=== PATIENT | male | born 1940 | race Caucasian/White ===

== ENCOUNTER → 2017-05-20 | Outpatient (CLI) | payer OTHER, BC ==
[~2017-05-20] VITALS: Ht 170.2 cm; Wt 77.5 kg
[~2017-05-20] MED LIST: APAP500; ATIVAN1 MG PO; AUGMENTIN 875-1 EACH PO; CALCIUM 600 WI1 EAC5 PO; CARDIZEM CD240 MG PO; CEFTIN500 MG PO; CELEXA 20 MG TA20 M1 PO; COQ-10100 MG PO; COUMADIN 2 MG TA2 M1 PO; COUMADIN 5 MG TA5 M1 PO; DILTIAZEM 24HR180 M2 PO; DILTIAZEM 24HR240 MG PO; DILTIAZEM ER240 M1 PO; ELIQUIS5 MG PO; EXCEDRIN ASA F1 EAC1 PO; FISH OIL 1,0001 EAC5 PO; FML 0.1% 10ML10 M1 OP; GABAPENTIN600 M1 PO; HYDROCHLOROTHIA25 M1 PO; HYDROCODON-ACE1 EAC5 PO; HYDROCODON-ACE1 EACH PO; HYDROCODONE-AP1 EA11 PO; IBUPROFEN 200200 M1 PO; KEFLEX500 MG PO; KEPPRA 500 MG500 M1 PO; LEVAQUIN 500 M500 M4 PO; LIDODERM 5%1 PATCH TOP; LIORESAL 10 MG10 MG PO; LIPITOR10 MG PO; LOPRESSOR25 PO; LORAZEPAM 1 MG T1 M1 PO; LOSARTAN POTASS50 MG PO; MIRALAX255 GM PO; MS CONTIN30 MG PO; NABUMETONE 500500 M1 PO; NAPROSYN500 MG PO; NEURONTIN 300300 M1 PO; NYSTATIN1 EAC9 TP; OMEPRAZOLE 20 M20 MG PO; OMEPRAZOLE20 M2 PO; OSELB75 PO; OXYCODONE HCL 55 MG PO; OXYCODONE HCL5 M1 PO; OXYCONTIN CR 2020 MG PO; OXYCONTIN20 MG PO; OXYCONTIN30 MG PO; PACERONE 200 M200 M1 PO; PERCOCET 5-3251 EACH PO; PERCOCET PO; PHENYTOIN; PHENYTOIN SODI100 M3 PO; ROXICODONE5 M1 PO; ROXICODONE5 MG PO; SENOKOT-S1 TA1 PO; TAMSULOSIN HCL0.4 MG PO; TUSSIONEX PENN473 ML PO; UNICOMPLEX M TA1 TA1 PO; VITAMIN D31000 UNI2 PO; ZOCOR40 MG PO; ZOFRAN4 MG PO
--- NOTE | ~2017-05-20 | HPC ---
[facility] [place] [address] PAIN MANAGEMENT CONSULTATION Name: DAPHNE RUDOLPH Room #: REG CL MBrandyn.#: [id number] Admission: 05/20/17 Attend Phys: Davin Julio DO Discharge: Date of : 42 Report #: [id number] THIS REPORT FOR: //name// CC: LISETH Julio DATE OF SERVICE: 05/21/2017 DATE OF SERVICE: 05/20/2017 CHIEF COMPLAINT: Neck pain, right shoulder pain. HISTORY OF PRESENT ILLNESS: As you know, the patient is a very pleasant 77-year-old male, who returns today in followup visit with chronic cervical radicular symptoms involving neck and right upper extremity. He returns today in followup visit stating that he continues on his anticoagulant. He has received information from his floor worker well service that he has not to come off the anticoagulant without clearance and I agree. He indicates that he would like to undergo next in the series of cervical epidural injections and is going to be obtaining clearance to do so, but unfortunately he did not discontinue his medication prior to today's visit. We can make the patient's appointment next week, so he can stop his Eliquis 3 days prior to our injection. We will then make an appointment back for the patient to undergo a cervical epidural injection. He is requesting possible medication changes today to address ongoing pain issues. He is placing pain score 8/10, states the pain is sharp and burning, exacerbated with activities, cold temperatures. Improves with medications. He denies injury or trauma to his neck or upper extremity that has led to progression of pain. ALLERGIES: TETRACYCLINE and SIMVASTATIN. CURRENT MEDICATIONS: Ibuprofen, Keppra, Lipitor, diltiazem, lorazepam, omeprazole, metoprolol, oxycodone. SOCIAL HISTORY: The patient denies tobacco, alcohol, IV or illicit drug use. He is retired. He is unaccompanied today. IMAGING: No new imaging available. PHYSICAL EXAMINATION: VITAL SIGNS: Blood pressure 132/85, pulse 70, respiratory rate 16, unlabored, the patient 99% on room air, height 5 feet 7 inches tall, weight 180.7 pounds, BMI calculated 26.7. GENERAL: Well developed, well nourished, well hydrated 77-year-old male appearing stated age, placing current pain score 8/10. [place] [address] PAIN MANAGEMENT CONSULTATION Name: DAPHNE RUDOLPH Room #: REG CLI KamalaXander#: [id number] Admission: 05/20/17 Attend Phys: Davin Julio DO Discharge: Date of : 42 Report #: [id number] HEENT: Normocephalic, atraumatic. Pupils equal, round, reactive to light. EXTREMITIES: Show no clubbing, no cyanosis, no edema. MUSCULOSKELETAL: Upper extremity strength is weakened on the right when compared to left. Pain is elicited with active and passive range of motion of the right shoulder. Spurling's test remains positive right, negative left. ASSESSMENT: 1. Cervical radiculopathy. 2. Chronic right shoulder pain. 3. Cervical spondylosis with radicular symptoms. 4. Chronic intractable pain. PLAN: 1. The patient returns today in followup visit requesting next in the series of cervical epidural injections. He has been advised by his floor worker well service due to a recent cardiovascular issue that he cannot come off his Eliquis without clears. The patient will need to contact his floor worker well service to confirm he can come off the Eliquis for 3 days. The patient indicates his floor worker well service had cleared him previously for 2-day discontinuation, unfortunately this does not comply with [facility] guidelines requiring a 3-day off the Eliquis for injections in a ____ areas. The patient needs to clear a 3 days off his Eliquis for us to perform this procedure, he needs to contact his floor worker well service immediately to have clearance for 3 days off the medication. If he is able to do so, we will have the patient return next week for the cervical epidural injection. 2. We will increase the patient's pain medication at this time. We will be placing the patient on hydrocodone 10/325 one tab every 6 hours p.r.n. for pain. I have given the patient #60. We have provided hydrocodone for pain control. I have advised the patient to take one half to one tab as needed for pain. He is to watch for side effects of somnolence, decrease in mental acuity, disorientation, confusion and constipation with its use. He was given this prescription with no refills. 3. The patient will start on gabapentin 600 mg dose 1 tab p.o. at bedtime for 7 nights, increase to 2 tabs p.o. bedtime. I have given the patient #60 tablets for writing this for neuropathic pain control, we are hopeful this will improve his symptoms as well. We will check on efficacy at followup visit next week. 4. The patient will be provided an appointment next week to undergo cervical epidural injection, assuming he can be cleared to come off his Eliquis for the 3 days required by DUNG. By: [id number] Davin Julio, DO /nt
[2017-05-20 12:57] VITALS: BP 132/85
== END | disposition home or self-care (01) ==
LOC: PAIN 06:55
DX: M47.22 Other spondylosis with radiculopathy, cervical region (principal); M25.511 Pain in right shoulder; G89.29 Other chronic pain; I48.91 Unspecified atrial fibrillation; I21.4 Non-ST elevation (NSTEMI) myocardial infarction; I48.92 Unspecified atrial flutter; Z88.8 Allergy status to other drugs, medicaments and biological substances

== ENCOUNTER → 2017-05-28 | Outpatient (CLI) | payer OTHER, BC ==
[~2017-05-28] VITALS: Ht 170.2 cm; Wt 77.1 kg
[2017-05-28 10:58] VITALS: BP 116/71
== END | disposition home or self-care (01) ==
LOC: PAIN 06:53
DX: M54.12 Radiculopathy, cervical region (principal); I48.91 Unspecified atrial fibrillation; I48.92 Unspecified atrial flutter; G89.29 Other chronic pain; I25.2 Old myocardial infarction; Z88.8 Allergy status to other drugs, medicaments and biological substances; Z79.899 Other long term (current) drug therapy; Z98.890 Other specified postprocedural states

== ENCOUNTER 2017-08-13 13:18 | Emergency (ER) | payer OTHER, BC ==
[~2017-08-13] VITALS: Ht 170.2 cm; Wt 75.8 kg
--- NOTE | ~2017-08-13 | EKG ---
[place] [address] [email or web address] [address] ELECTROCARDIOGRAM REPORT Name: MAYRADAPHNE ALSTON Room #: DEP [facility]#: [id number] Admission: 08/13/17 Attend Phys: Discharge: 08/13/17 Date of : 42 Report #: [id number] THIS REPORT FOR: //name// [facility] ED Test Date: 2017-08-13 Test Time: 14:14:04 Pat Name: DAPHNE RUDOLPH Department: Room: Gender: M Medical Insurance Claims Specialist: Manjit JOHNSON : 1940 Requested By: Anders Villa Order Number: [id number] MD: George Hancock Measurements Intervals [place] Rate: 73 P: 46 NE: 185 QRS: -40 QRSD: 98 T: -19 QT: 396 QTc: 437 Interpretive Statements Sinus rhythm Ventricular premature complex Inferoposterior infarct, age indeterminate Compared to ECG 01/29/2017 06:52:20 Ventricular premature complex(es) now present Atrial fibrillation no longer present Inferior and lateral injury pattern no longer present Electronically Signed On 08-14-2017 8:11:31 CDT by George Hancock [email or web address] <ELECTRONICALLY SIGNED> By: George Hancock MD, [facility] 08/14/17 0811 1414 1414 George Hancock MD, [facility] /EPI
[2017-08-13 14:53] LABS: ABSOLUTE NEUTROPHILS 4.4 thou/uL (1.4-8.2); BASOPHILS 0.4 % (0.0-2.0); EOSINOPHILS 2.2 % (0.0-3.0); HEMATOCRIT 37.5 % (42.0-52.0); LYMPHOCYTES 17.1 % (24.0-44.0); MCH 31.5 pg (26.0-34.0); MCHC 34.5 g/dL (28.0-37.0); MCV 91.3 fL (80.0-100.0); MONOCYTES 10.5 % (1.0-8.0); PLATELET COUNT 261 thou/uL (150-400); POLYS 69.8 % (36.0-66.0); RBC 4.11 mil/uL (4.50-6.00); RDW 14.9 % (10.5-14.5); WBC 6.3 thou/uL (4.0-11.0)
[2017-08-13 14:54] LABS: MANUAL DIFF NO
[2017-08-13 14:58] LABS: ANION GAP 6 mmol/L (7-16); BUN 32 mg/dL (7-18); CALCIUM 9.4 mg/dL (8.5-10.1); CHLORIDE 108 mmol/L (98-107); CO2 27 mmol/L (21-32); CREATININE 1.2 mg/dL (0.7-1.3); GLUCOSE 95 mg/dL (74-106); POTASSIUM 4.5 mmol/L (3.5-5.1); SODIUM 141 mmol/L (136-145)
[2017-08-13 15:07] LABS: TROPONIN-I < 0.04 ng/mL (<0.04-0.07)
== END 2017-08-13 16:16 | disposition home or self-care (01) ==
LOC: ER 13:18
PROVIDERS: Nurse Practitioner
DX: R42 Dizziness and giddiness (principal); I10 Essential (primary) hypertension; G40.909 Epilepsy, unspecified, not intractable, without status epilepticus; I25.2 Old myocardial infarction; Z98.890 Other specified postprocedural states; Z96.642 Presence of left artificial hip joint; Z87.891 Personal history of nicotine dependence; Z88.1 Allergy status to other antibiotic agents; Z88.8 Allergy status to other drugs, medicaments and biological substances

== ENCOUNTER → 2017-09-30 | Outpatient (CLI) | payer OTHER, BC ==
[~2017-09-30] VITALS: Ht 170.2 cm; Wt 79.3 kg
--- NOTE | ~2017-09-30 | HPC ---
[facility] [address] [place] [address] PAIN MANAGEMENT CONSULTATION Name: DAPHNE RUDOLPH [facility] [id number] Admission: 09/30/17 Attend Phys: Davin Julio DO Discharge: Date of : 42 Report #: [id number] THIS REPORT FOR: //name// CC: LISETH Julio DATE OF SERVICE: 09/30/2017 CHIEF COMPLAINT: Neck pain, right upper extremity pain and paresthesias. HISTORY OF PRESENT ILLNESS: As you know, the patient is a very pleasant 77-year-old male who returns today in followup visit with recurrent neck pain, right upper extremity pain with paresthesias. The patient today is placing pain score at around 8/10, states his pain is chronic in nature. He describes his pain as sharp, deep aching, constant, numbness and tingling. He states it exacerbates with activities, it tends to worsen during the daytime hours; cold compresses, medications, heat and cold compresses, epidural injections and medications appear to improve pain. He returns today in followup visit for the next in a series of cervical epidural injections in hopes of building on the success of previous intervention. He reports with the previous cervical epidural injection 80% improvement for nearly 3 months. He returns today for medication management and cervical epidural injection. ALLERGIES: TETRACYCLINE and SIMVASTATIN. CURRENT MEDICATIONS: Ibuprofen, Keppra, Lipitor, diltiazem, lorazepam, omeprazole, metoprolol, oxycodone. SOCIAL HISTORY: The patient denies tobacco, alcohol, IV or illicit drug use. He is retired, retired years ago, unaccompanied today. IMAGING: No new imaging available. PHYSICAL EXAMINATION: VITAL SIGNS: Blood pressure 132/80, pulse is 63, respiratory rate 18, unlabored. The patient is 100% on room air, height 5 feet 7 inches tall, weight 174.8 pounds, BMI calculated 27.4. GENERAL: Well-developed, well-nourished, well-hydrated 77-year-old male appearing stated age, pain is rated today at 8/10. HEENT: Normocephalic, atraumatic. Pupils equal, round, reactive to light. Extraocular muscles are intact. EXTREMITIES: Show no clubbing, no cyanosis, no edema. MUSCULOSKELETAL: Upper extremity strength is weakened on the right when compared to left. This pain is elicited with Spurling's test on the right, negative left. Active and passive range of motion of the right shoulder does [address] [address] PAIN MANAGEMENT CONSULTATION Name: DAPHNE RUDOLPH Room #: REG [facility].#: [id number] Admission: 09/30/17 Attend Phys: Davin Julio DO Discharge: Date of : 42 Report #: [id number] cause increasing pain. Muscle bulk and tone equal and symmetrical. ASSESSMENT: 1. Cervical radiculopathy. 2. Chronic right shoulder pain. 3. Cervical spondylosis with radicular symptoms. 4. Chronic intractable pain. PLAN: 1. The patient returns today in followup visit requesting to undergo cervical epidural injection under fluoroscopic guidance. He reports 80% improvement in overall pain with the previous injection provided nearly 3 months ago. He denies injury or trauma that may have led to progression of symptoms. He returns today to undergo this procedure. I have advised him of the risks and benefits, states he understood and wished to proceed. 2. No medication changes were made at today's visit, the patient to continue current medical therapy as previously prescribed. 3. We will see the patient back in followup visit on an as needed basis for next in the series of epidural injections and to make adjustments in medication therapy if necessary. DESCRIPTION OF PROCEDURE: Cervical epidural steroid injection under fluoroscopic guidance. After obtaining written consent, the patient was taken back to fluoroscopy suite, placed in prone position with separate pillows under chest and forehead to decrease cervical lordosis. Skin overlying cervical area prepped and draped in aseptic fashion. The cervical intervertebral spaces were identified by AP fluoroscopy. Skin and subcutaneous tissue overlying target site of injection was anesthetized with 3 mL of 1% lidocaine. A 20-gauge 3-1/2 inch Tuohy needle advanced under fluoroscopic guidance towards the epidural space using midline approach. Epidural space identified using loss of resistance to air technique. After negative aspiration for heme or cerebrospinal fluid, 1 mL of Omnipaque was injected. A cervical epidurogram was confirmed using both AP and oblique fluoroscopy. After negative aspiration for heme or cerebrospinal fluid, 5 mL of a solution containing 2 mL 40 mg per mL, 80 mg total triamcinolone and 3 mL lidocaine 1% injected slowly. Needle retracted long-term, needle tract flushed with 3 mL 1% lidocaine. Needle then removed. Sterile bandage placed over injection site. No new motor deficits present in the upper extremity following the procedure. The patient tolerated the procedure well, carefully escorted to the recovery [facility] [address] [place] [address] PAIN MANAGEMENT CONSULTATION Name: DAPHNE RUDOLPH Room #: REG CLI Florian#: [id number] Admission: 09/30/17 Attend Phys: Davin Julio DO Discharge: Date of : 42 Report #: [id number] room in stable condition. No apparent complications. After meeting discharge criteria, the patient discharged home. By: 0832 1249 Davin Julio DO /nt
[2017-09-30 08:24] VITALS: BP 132/80
== END | disposition home or self-care (01) ==
LOC: PAIN 09-16 13:40
DX: M47.22 Other spondylosis with radiculopathy, cervical region (principal); G89.29 Other chronic pain; M25.511 Pain in right shoulder; I25.2 Old myocardial infarction; I48.91 Unspecified atrial fibrillation; I48.92 Unspecified atrial flutter; Z79.899 Other long term (current) drug therapy; Z88.1 Allergy status to other antibiotic agents; Z88.8 Allergy status to other drugs, medicaments and biological substances; Z79.891 Long term (current) use of opiate analgesic

== ENCOUNTER → 2017-12-02 | Outpatient (CLI) | payer OTHER, BC ==
[~2017-12-02] VITALS: Ht 170.2 cm; Wt 79.0 kg
--- NOTE | ~2017-12-02 | HPC ---
[facility] [address] [place] [address] PAIN MANAGEMENT CONSULTATION Name: DAPHNE RUDOLPH Room #: REG CL M..#: [id number] Admission: 12/02/17 Attend Phys: Davin Julio DO Discharge: Date of : 42 Report #: [id number] THIS REPORT FOR: //name// CC: Gage Julio DATE OF SERVICE: 12/02/2017 CHIEF COMPLAINT: Neck pain, right upper extremity pain with paresthesias. HISTORY OF PRESENT ILLNESS: As you know, the patient is a very pleasant 77-year-old male who returns today in followup visit with recurrent neck pain, right upper extremity pain with paresthesias. The patient is placing pain score today at 6-7/10. States his pain is sharp, dull, aching, constant numbness and tingling when describing symptoms, exacerbated with activities, worse in the evening hours and improves with cold compresses, medications, heat compresses and cervical epidural injections. He returns today in followup visit to undergo the next in a series of cervical epidural injections. He reports 75% improvement in overall pain with previous injection lasting for nearly 1-1/2 months. He denies new injury or trauma that may have led to recurrence of symptoms. ALLERGIES: TETRACYCLINE AND SIMVASTATIN. CURRENT MEDICATIONS: Ibuprofen, Keppra, Lipitor, diltiazem, lorazepam, omeprazole, metoprolol, oxycodone. SOCIAL HISTORY: The patient denies tobacco, alcohol, IV or illicit drug use. He retired, retired years ago, unaccompanied today. IMAGING: No new imaging available. PHYSICAL EXAMINATION: VITAL SIGNS: Blood pressure 140/80, pulse is 70, respiratory rate 20, unlabored. The patient is 100% on room air. Height 5 feet 7 inches tall, weight 174.2 pounds, BMI calculated 27.3. GENERAL: Well-developed, well-nourished, well-hydrated 77-year-old male appearing his stated age. He is placing pain score today 6-7/10. HEENT: Normocephalic, atraumatic. Pupils equal, round, reactive to light. Extraocular muscles are intact. Sclerae nonicteric, without injection. EXTREMITIES: Show no clubbing, no cyanosis, no edema. MUSCULOSKELETAL: Upper extremity strength is weakened on the right when compared to left. Muscle bulk and tone appears equal and symmetrical. Weakening of the muscles appears to be with biceps flexion and triceps extension. Spurling's test positive right, negative left. Active and passive [address] [address] PAIN MANAGEMENT CONSULTATION Name: DAPHNE RUDOLPH Room #: REG [facility] Florian#: [id number] Admission: 12/02/17 Attend Phys: Davin Julio DO Discharge: Date of : 42 Report #: [id number] range of motion of right shoulder is met with increasing pain. ASSESSMENT: 1. Cervical radiculopathy. 2. Chronic cervical spondylosis with radicular symptoms. 3. Chronic right shoulder pain. 4. Chronic intractable pain. PLAN: 1. The patient has returned today in followup visit with concern of ongoing neck pain, right upper extremity pain with paresthesias. The patient has had a slow and progressive return of symptoms after a 75% improvement in overall pain noted with a cervical epidural injection provided in August. He returns today requesting to undergo next in the series of cervical epidural injections in hopes of improving symptoms as we have seen with each previous injection. He has been advised risks and benefits of this procedure, states he understood and wished to proceed. 2. No medication changes were made at today's visit. The patient will continue current medical therapy as previously prescribed. 3. We will see the patient back in followup visit on an as needed basis for possible repeat cervical epidural injection. He does not need medication refills at this time. <ELECTRONICALLY SIGNED> By: Davin Julio DO 12/03/17 0739 1033 1059 Davin Julio DO /nt
--- NOTE | ~2017-12-02 | P ---
[facility] [address] [place] [address] PROCEDURE REPORT Name: DAPHNE RUDOLPH Room #: REG CL MTravis.#: [id number] Admission: 12/02/17 Attend Phys: Davin Julio DO Discharge: Date of : 42 Report #: [id number] THIS REPORT FOR: //name// CC: Gage Julio DATE OF SERVICE: 12/02/2017 DESCRIPTION OF PROCEDURE: C7-T1 cervical epidural steroid injection under fluoroscopic guidance. After obtaining written consent, the patient was taken back to fluoroscopy suite, placed in prone position with separate pillows under chest and forehead to decrease cervical lordosis. Skin overlying cervical area then prepped and draped in aseptic fashion. C7-T1 cervical interspace identified by AP fluoroscopy. Skin and subcutaneous tissue overlying target site of injection was anesthetized with 3 mL of 1% lidocaine. A 20-gauge 3-1/2-inch Tuohy needle advanced under fluoroscopic guidance towards the epidural space using a midline approach. Epidural space identified using loss of resistance to air technique. After negative aspiration for heme or cerebrospinal fluid, 1 mL of Omnipaque was injected. A cervical epidurogram was confirmed using both AP and oblique fluoroscopy. After negative aspiration for heme or cerebrospinal fluid, 5 mL of a solution containing 2 mL 40 mg per mL, 80 mg total triamcinolone, 3 mL lidocaine 1% injected slowly. Needle retracted custodial, flushed with 1 mL of 1% lidocaine and removed. Sterile bandage placed over injection site. No new motor deficits present in the upper extremities following procedure. The patient tolerated procedure well, carefully escorted to the recovery room in stable condition. No apparent complications. After meeting discharge criteria, the patient discharged home. <ELECTRONICALLY SIGNED> By: Davin Julio DO 12/03/17 0739 1033 1103 Davin Julio DO /nt
[2017-12-02 08:56] VITALS: BP 148/80
== END | disposition home or self-care (01) ==
LOC: PAIN 07:03
DX: M47.22 Other spondylosis with radiculopathy, cervical region (principal); M25.511 Pain in right shoulder; G89.29 Other chronic pain; Z79.891 Long term (current) use of opiate analgesic; Z79.899 Other long term (current) drug therapy; Z88.8 Allergy status to other drugs, medicaments and biological substances; Z98.890 Other specified postprocedural states

== ENCOUNTER → 2018-03-03 | Outpatient (CLI) | payer OTHER, BC ==
[~2018-03-03] VITALS: Ht 170.2 cm; Wt 78.0 kg
--- NOTE | ~2018-03-03 | HPC ---
[facility] [address] [place] [address] PAIN MANAGEMENT CONSULTATION Name: DAPHNE RUDOLPH [id number] Admission: 03/03/18 Attend Phys: Davin Julio DO Discharge: Date of : 42 Report #: [id number] THIS REPORT FOR: //name// CC: Gage Julio DATE OF SERVICE: 03/03/2018 REFERRING PHYSICIAN: Gage Lenz MD CHIEF COMPLAINT: Neck pain, right upper extremity pain and paresthesias. HISTORY OF PRESENT ILLNESS: As you know, the patient is a very pleasant 78-year-old male who returns today in followup visit with recurrent neck pain, right upper extremity pain with paresthesias. He is placing current pain score at approximately 7-8/10. He denies new injury or new trauma that may have led to symptom recurrence. He does very well with previous cervical epidural injections noticing both his right neck pain and right shoulder pain disappears completely with the injections, he reports 80% to 90% improvement in overall pain lasting for months at a time with these injections. He returns today in followup visit having discontinued his Eliquis in preparation for the next in the series of cervical epidural injections to address recurrent cervical radicular pain. ALLERGIES: TETRACYCLINE and SIMVASTATIN. CURRENT MEDICATIONS: Keppra, atorvastatin, diltiazem, omeprazole, metoprolol, and Eliquis (held 3 days). SOCIAL HISTORY: The patient denies tobacco, alcohol, IV or illicit drug use. He is unaccompanied at today's visit. IMAGING: No new imaging available. PQRS: The patient does have known osteoarthritis. No rheumatoid arthritis. He is treated with blood thinners and is a bleeding risk. He is treated for hypertension. He is not a fall risk, has not had a fall in the past 3 months, he is on opioids for which he is under contract with [facility]. He is placing pain today at approximately 8-9/10. His pain assessment/functional assessment tool indicates a level of 55/70. He is a low risk for opioid abuse. PHYSICAL EXAMINATION: VITAL SIGNS: Blood pressure 148/86, pulse 75, respiratory rate 16 and unlabored, the patient is 99% on room air, height 5 feet 7 inches tall, weight 172 pounds, and BMI calculated 26.9. [address] [address] PAIN MANAGEMENT CONSULTATION Name: DAPHNE RUDOLPH Room #: REG CLThomas Florian#: [id number] Admission: 03/03/18 Attend Phys: Davin Julio DO Discharge: Date of : 42 Report #: [id number] GENERAL: Well-developed, well-nourished, well-hydrated 78-year-old male, appearing stated age, pain is rated around 7-8/10. HEENT: Normocephalic, atraumatic. Pupils are equal, round, and reactive to light. EXTREMITIES: Show no clubbing, no cyanosis, and no edema. MUSCULOSKELETAL: Upper extremity strength is weakened again on the right. Pain is elicited with active and passive range of motion of the right shoulder as well as cervical provocation with rotation and lateral flexion to the right with the neck. Spurling's test positive right, negative left. There appears to be some crepitus with shoulder movement. ASSESSMENT: 1. Cervical radiculopathy. 2. Cervical spondylosis with radiculopathy. 3. Right shoulder pain. 4. Chronic intractable pain. PLAN: 1. The patient returns today in followup visit indicating increasing neck pain, right shoulder pain radiating down the arm to just above the hand. This appears to be the patient's typical radiating pain pattern for his cervical radiculopathy. I do believe the patient does have some arthritic changes in the right shoulder and this might need to be evaluated further by orthopedics, but at this time symptoms distribution would correlate more to a cervical radiculopathy. I have discussed this with the patient today. The patient and I discussed the possibility of undergoing the next in a series of cervical epidural injections and he is amenable. 2. No medication changes were made at today's visit. The patient to continue current medical therapy as previously prescribed. 3. We will see the patient back in followup visit on an as needed basis for next in the series of cervical epidural injections and for medication refills for cervical radiculopathy. PROCEDURE NOTE DESCRIPTION OF PROCEDURE: C7-T1 cervical epidural steroid injection under fluoroscopic guidance. After obtaining written consent, the patient was taken back to fluoroscopy suite, placed in prone position with separate pillows under chest and forehead to decrease cervical lordosis. Skin overlying cervical area prepped and draped in aseptic fashion. C7-T1 cervical interspace identified by AP fluoroscopy. Skin and subcutaneous tissue overlying target site of injection was anesthetized with 3 mL of 1% lidocaine. A 20-gauge 3-1/2-inch Tuohy needle advanced under fluoroscopic guidance towards [address] [address] PAIN MANAGEMENT CONSULTATION Name: DAPHNE RUDOLPH Room #: REG BL[facility] Du#: [id number] Admission: 03/03/18 Attend Phys: Davin Julio DO Discharge: Date of : 42 Report #: [id number] the epidural space using midline approach. Epidural space identified using loss of resistance to air technique. After negative aspiration for heme or cerebrospinal fluid, 0.5 mL of Omnipaque was injected. A cervical epidurogram was confirmed using both AP and oblique fluoroscopy. After negative aspiration for heme or cerebrospinal fluid, 5 mL of a solution containing 2 mL 40 mg per mL, 80 mg total triamcinolone and 3 mL of lidocaine 1% was injected slowly. Needle retracted longterm, flushed with 1 mL of 1% lidocaine and removed. Sterile bandage placed over injection site. No new motor deficits present in the upper extremity following procedure. The patient tolerated the procedure well, carefully escorted to recovery room in stable condition. No apparent complication. After meeting discharge criteria, the patient discharged home. <ELECTRONICALLY SIGNED> By: Davin Julio DO 03/03/18 1336 1129 1325 Davin Julio DO /nt
[2018-03-03 08:57] VITALS: BP 148/86
== END | disposition home or self-care (01) ==
LOC: PAIN 07:04
DX: M47.22 Other spondylosis with radiculopathy, cervical region (principal); G89.29 Other chronic pain; M25.511 Pain in right shoulder; I10 Essential (primary) hypertension; I48.91 Unspecified atrial fibrillation; Z79.891 Long term (current) use of opiate analgesic; Z88.8 Allergy status to other drugs, medicaments and biological substances; Z79.01 Long term (current) use of anticoagulants; Z79.899 Other long term (current) drug therapy

== ENCOUNTER → 2018-06-02 | Outpatient (CLI) | payer OTHER, BC ==
[~2018-06-02] VITALS: Ht 170.2 cm; Wt 76.5 kg
--- NOTE | ~2018-06-02 | HPC ---
[facility] [address] [place] [address] PAIN MANAGEMENT CONSULTATION Name: DAPHNE RUDOLPH [id number] Admission: 06/02/18 Attend Phys: Davin Julio DO Discharge: Date of : 42 Report #: [id number] THIS REPORT FOR: //name// CC: Gage Julio DATE OF SERVICE: 06/02/2018 REFERRING PHYSICIAN: Gage Lenz M.D. CHIEF COMPLAINT: Neck pain, right upper extremity pain with paresthesias. HISTORY OF PRESENT ILLNESS: As you know, the patient is a very pleasant 78-year-old male who returns today in followup visit with recurrent neck pain, right upper extremity pain with paresthesias. He is placing current pain score around 7/10. He has discontinued his Eliquis 3 days prior to today's visit to undergo a cervical epidural injection under fluoroscopic guidance. The patient states he is having difficulty with sleep and activities of daily living due to increasing pain issues. He denies specific injury or trauma that may have led to symptom reoccurrence. He reports good efficacy with previous epidural injection, noting an improvement of 80% for nearly 2 months. He returns requesting next in a series of cervical epidural injections to address recurrent cervical radicular symptoms. ALLERGIES: TETRACYCLINE and SIMVASTATIN. CURRENT MEDICATIONS: Keppra, atorvastatin, diltiazem, omeprazole, metoprolol and Eliquis. SOCIAL HISTORY: The patient denies tobacco, alcohol or IV or illicit drug use. He is unaccompanied at today's visit. IMAGING DATA: No new imaging available. PQRS: The patient has osteoarthritis of the bilateral knees and low back as well as cervical region. No rheumatoid arthritis. He is not a fall risk, has not had a fall in the last 3 months. He is on a blood thinner in the form of Eliquis but held for the last 3 days for the injection. He is treated for hypertension. He is on opioids for greater than 6-week period of time. He has a low risk for opioid abuse. He is placing his pain impact score 48/70. Moderate to severe interference of daily activities secondary to pain. PHYSICAL EXAMINATION: VITAL SIGNS: Blood pressure 142/87, pulse 65 and respiratory rate 16 and unlabored. The patient is 100% on room air. Height 5 feet 7 inches tall, [facility] [address] [place] [address] PAIN MANAGEMENT CONSULTATION Name: DAPHNE RUDOLPH Room #: REG CLI [facility]#: [id number] Admission: 06/02/18 Attend Phys: Davin Julio DO Discharge: Date of : 42 Report #: [id number] weight 168.6 pounds and BMI calculated 26.4. GENERAL: Well-developed, well-nourished, well-hydrated, 78-year-old male. He appears his stated age, placing current pain score at 7/10. HEENT: Normocephalic and atraumatic. Pupils equal, round and reactive to light. Extraocular muscles are intact. NEUROLOGICAL: Speech fluent. The patient deemed an excellent historian. EXTREMITIES: Show no clubbing, no cyanosis and no edema. MUSCULOSKELETAL: Upper extremity strength is noted to be slightly weakened on the right when compared to left. This is noted with active and passive range of motion of right shoulder as well as abduction of the shoulder. Cervical provocation testing is met with increasing pain on the right with not only axial cervical pain but radiation down the arm. Spurling's test positive right, negative left. ASSESSMENT: 1. Cervical radiculopathy. 2. Cervical spondylosis with radiculopathy. 3. Chronic right shoulder pain. 4. Osteoarthritis of the right shoulder. 5. Chronic intractable pain. PLAN: 1. The patient has returned today in followup visit indicating an 80% improvement in overall pain in his neck and right upper extremity with the cervical epidural injection provided at our visit of March. Unfortunately, the patient's symptoms have begun to return. He is having difficulty with sleeping and going about activities of daily living due to ongoing pain issues. He returns requesting the next in the series of cervical epidural injections. The patient has discontinued his Eliquis 3 days prior to today's appointment so that he could undergo the injection. The patient has been advised risks and benefits of a repeat cervical epidural injection, states understood and wished to proceed. 2. No medication changes made at today's visit. The patient will continue current medical therapy as previously prescribed. 3. We will see the patient back in followup visit on an as needed basis for medication management; otherwise, we will see him back for next in a series of cervical epidural injections as necessary. PROCEDURE NOTE: DESCRIPTION OF PROCEDURE: C7-T1 cervical epidural steroid injection under fluoroscopic guidance. DESCRIPTION OF PROCEDURE: After obtaining written consent, the patient was taken back to fluoroscopy suite, placed in prone position with separate pillows under chest and forehead to decrease cervical lordosis. Skin overlying cervical [address] [address] PAIN MANAGEMENT CONSULTATION Name: DAPHNE RUDOLPH Room #: REG [facility]#: [id number] Admission: 06/02/18 Attend Phys: Davin Juloi DO Discharge: Date of : 42 Report #: [id number] area then prepped and draped in aseptic fashion. C7-T1 cervical interspace identified by AP fluoroscopy. Skin and subcutaneous tissue overlying target site of injection was anesthetized with 3 mL of 1% lidocaine. A 20-gauge 3-1/2 inch Tuohy needle advanced under fluoroscopic guidance towards the epidural space using a midline approach. Epidural space identified using loss of resistance to air technique. After negative aspiration for heme or cerebrospinal fluid, 1 mL of Omnipaque was injected. A cervical epidurogram confirmed using both AP and oblique fluoroscopy. After negative aspiration for heme or cerebrospinal fluid, 5 mL of solution containing 2 mL 40 mg per mL, 80 mg total triamcinolone, 3 mL lidocaine 1% injected slowly. Needle retracted assisted, flushed with 1 mL of 1% lidocaine and removed. Sterile bandage placed over injection site. No new motor deficits present in the lower extremity following procedure. The patient tolerated procedure well, carefully escorted to recovery room in stable condition. No apparent complication. After meeting discharge criteria, the patient discharged home. By: [id number] Davin Julio DO /nt
[2018-06-02 08:41] VITALS: BP 142/87
== END | disposition home or self-care (01) ==
LOC: PAIN 06:36
DX: M47.22 Other spondylosis with radiculopathy, cervical region (principal); G89.29 Other chronic pain; M25.511 Pain in right shoulder; M19.011 Primary osteoarthritis, right shoulder; I25.2 Old myocardial infarction; I48.91 Unspecified atrial fibrillation; Z87.01 Personal history of pneumonia (recurrent); Z79.01 Long term (current) use of anticoagulants; Z88.8 Allergy status to other drugs, medicaments and biological substances; Z79.899 Other long term (current) drug therapy

== ENCOUNTER → 2018-09-22 | Outpatient (CLI) | payer OTHER, BC ==
[~2018-09-22] VITALS: Ht 170.2 cm; Wt 80.3 kg
--- NOTE | ~2018-09-22 | HPC ---
[facility] [address] [place] [address] PAIN MANAGEMENT CONSULTATION Name: DAPHNE RUDOLPH [facility] [id number] Admission: 09/22/18 Attend Phys: Davin Julio DO Discharge: Date of : 42 Report #: [id number] THIS REPORT FOR: //name// CC: LISETH Julio DATE OF SERVICE: 09/22/2018 CHIEF COMPLAINT: Neck pain, right upper extremity pain and paresthesias. HISTORY OF PRESENT ILLNESS: As you know, the patient is a very pleasant 78-year-old male who returns today in followup visit with recurrent neck pain, right upper extremity pain with paresthesias. He is placing current pain score 9/10. He states his pain is chronic in nature, describes the pain as sore, aching, numbness and tingling. He states pain is exacerbated with activities, turning his head, improves with medications, heat and cold compresses and cervical epidural injections. The most recent cervical epidural injection provided 90% improvement in overall pain for nearly 2-1/4 months. He returns today in followup visit to undergo next in the series of cervical epidural injections to address his cervical radiculopathy. ALLERGIES: TETRACYCLINE AND SIMVASTATIN. CURRENT MEDICATIONS: Eliquis 5 mg twice a day, Keppra 500 mg twice a day, atorvastatin 10 mg per day, diltiazem ER 240 mg per day, omeprazole 20 mg twice a day, metoprolol 25 mg twice a day. SOCIAL HISTORY: The patient denies tobacco, alcohol, IV or illicit drug use. He is retired, retired years ago. He is unaccompanied today. IMAGING: No new imaging available. PQRS: The patient has known osteoarthritis of the neck and bilateral shoulders, right greater than left. He does not have a history of rheumatoid arthritis. He places pain score 9/10. He is not a fall risk, has not had a fall in the last 3 months. He is on blood thinners in the form of Eliquis, but has stopped this 3 days prior to today's procedure. He is treated for hypertension. He has not been on long-term opioid therapy, but does have a low risk for opioid addiction. His functional assessment pain impact is 48/70, moderate severe. PHYSICAL EXAMINATION: VITAL SIGNS: Blood pressure 145/86, pulse 71, respiratory rate 14 and unlabored. The patient is 96% on room air. Height 5 feet 7 inches tall, weight 177 pounds, BMI calculated at 27.7. GENERAL: Well-developed, well-nourished, well-hydrated, 78-year-[place] [address] PAIN MANAGEMENT CONSULTATION Name: DAPHNE RUDOLPH Room #: REG BLU Du#: [id number] Admission: 09/22/18 Attend Phys: Davin Julio DO Discharge: Date of : 42 Report #: [id number] appears his stated age, placing current pain score at 9/10. HEENT: Normocephalic, atraumatic. Pupils equal, round, reactive to light. Extraocular muscles are intact. Sclerae nonicteric, without injection. EXTREMITIES: Show no clubbing, no cyanosis, no edema. MUSCULOSKELETAL: Upper extremity strength appears equal and symmetrical 5/5. Slight giveaway strength noted today with biceps flexion and triceps extension on the right when compared to left, this is due to pain generation. Muscle bulk and tone appears equal and symmetrical in comparing right upper extremity to the left. Strength is slightly weakened on the right when compared to the left. Active and passive range of motion of right shoulder is met with slight increase in overall pain, right greater than left. Cervical provocation testing met with increasing pain with lateral flexion and rotation to the right. Spurling's test is positive right, negative left. ASSESSMENT: 1. Cervical radiculopathy. 2. Cervical spondylosis with radiculopathy. 3. Osteoarthritis of the right shoulder. 4. Chronic right shoulder pain. 5. Chronic intractable pain. PLAN: 1. The patient returns today in followup visit with recurrent neck pain, right upper extremity pain and paresthesias, for which he places pain score 9/10. He returns today requesting a cervical epidural injection as he has noted excellent benefit with cervical epidural injections in the past, the most recent providing 90% improvement in overall pain lasting for nearly 2-1/4 months. He returns today requesting this injection. He has been advised of risks and benefits. These risks include but are not necessarily limited to bleeding, bruising, infection, worsening pain, no relief of pain, also risk of temporary or permanent muscle weakness, temporary or permanent nerve damage, possible paralysis and . The patient states he understood and wished to proceed. 2. No medication changes were made at today's visit. The patient to continue current medical therapy as previously prescribed. 3. We will see the patient back in followup visit on an as needed basis for the next in the series of cervical epidural injections. PROCEDURE NOTE DESCRIPTION OF PROCEDURE: Cervical epidural steroid injection under fluoroscopic guidance. After obtaining written consent, the patient was taken back to fluoroscopy suite, placed in prone position with separate pillows under chest and forehead to decrease cervical lordosis. Skin overlying the cervical area was then prepped and draped in aseptic fashion. Cervical intervertebral spaces were [address] [address] PAIN MANAGEMENT CONSULTATION Name: DAPHNE RUDOLPH Room #: REG CLI Florian#: [id number] Admission: 09/22/18 Attend Phys: Davin Julio DO Discharge: Date of : 42 Report #: [id number] identified by AP fluoroscopy. Skin overlying the area was then anesthetized with 3 mL of 1% lidocaine using a 27-gauge 1-1/4 inch needle. A 20-gauge 3-1/2 inch Tuohy needle advanced under fluoroscopic guidance towards the epidural space using midline approach. Epidural space identified using loss of resistance to air technique. After negative aspiration for heme or cerebrospinal fluid, 1 mL of Omnipaque injected. A cervical epidurogram confirmed using both AP and lateral fluoroscopy. After negative aspiration for heme or cerebrospinal fluid, 5 mL of a solution containing 2 mL 40 mg per mL, 80 mg total triamcinolone, 3 mL lidocaine 1% injected slowly. Needle retracted long-term, flushed with 1 mL of 1% lidocaine and removed. Sterile bandage placed over injection site. No new motor deficits present in the upper extremity following procedure. The patient tolerated the procedure well, carefully escorted to recovery room in stable condition. No apparent complications. After meeting discharge criteria, the patient discharged home. <ELECTRONICALLY SIGNED> By: Davin Julio DO 09/23/18 0835 [id number] Davin Julio DO /katherine
[2018-09-22 08:01] VITALS: BP 145/86
== END | disposition home or self-care (01) ==
LOC: PAIN 06:14
DX: M47.22 Other spondylosis with radiculopathy, cervical region (principal); M19.011 Primary osteoarthritis, right shoulder; M25.511 Pain in right shoulder; G89.29 Other chronic pain; I10 Essential (primary) hypertension; I21.4 Non-ST elevation (NSTEMI) myocardial infarction; I48.92 Unspecified atrial flutter; I48.91 Unspecified atrial fibrillation; Z88.8 Allergy status to other drugs, medicaments and biological substances; Z79.891 Long term (current) use of opiate analgesic; Z79.01 Long term (current) use of anticoagulants; Z79.899 Other long term (current) drug therapy

== ENCOUNTER → 2018-12-08 | Outpatient (CLI) | payer OTHER, BC ==
[~2018-12-08] VITALS: Ht 170.2 cm; Wt 76.6 kg
--- NOTE | ~2018-12-08 | HPC ---
[facility] [place] [address] [address] PAIN MANAGEMENT CONSULTATION Name: DAPHNE RUDOLPH Room #: REG CL [facility].#: [id number] Admission: 12/08/18 Attend Phys: Davin Julio DO Discharge: Date of : 42 Report #: [id number] THIS REPORT FOR: //name// CC: Gage Julio DATE OF SERVICE: 12/08/2018 REFERRING PHYSICIAN: Gage Lenz M.D. CHIEF COMPLAINT: Neck pain and right upper extremity pain with paresthesias. HISTORY OF PRESENT ILLNESS: As you know, the patient is a very pleasant 78-year-old male who returns today in followup visit with recurrent neck pain, right upper extremity pain with paresthesias. He is placing current pain score at approximately 7/10. He denies injury or trauma that may have changed his overall pain. He has discontinued his Eliquis in preparation for today's procedure. He has been off the Eliquis for nearly 3 days. He returns today to undergo a cervical epidural injection under fluoroscopic guidance for which he notes good and prolonged efficacy. ALLERGIES: TETRACYCLINE and SIMVASTATIN. CURRENT MEDICATIONS: Eliquis, Keppra, atorvastatin, diltiazem, omeprazole and metoprolol. SOCIAL HISTORY: The patient denies tobacco, alcohol, IV or illicit drug use. He is retired, retired years ago, unaccompanied today. IMAGING DATA: No new imaging available. PQRS: The patient has known arthritic changes of the neck, bilateral shoulders, right greater than left and low back. No history of rheumatoid arthritis. Placing current pain score 7/10, is not a fall risk, has not had a fall in the last 3 months. He is on blood thinners in the form of Eliquis but has discontinued the medication 3 days prior. He is treated for hypertension and he is not on chronic opioids. He is a low risk for opioid addiction. Pain impact score 48/70, [id number] interference of daily activities secondary to pain. PHYSICAL EXAMINATION: VITAL SIGNS: Blood pressure 139/70, pulse 70 and respiratory rate 16 and unlabored. The patient is 98% on room air. Height 5 feet 7 inches tall, weight 168.8 pounds and BMI calculated 26.4. GENERAL: Well-developed, well-nourished, well-hydrated 78-year-old male, [place] [address] PAIN MANAGEMENT CONSULTATION Name: DAPHNE RUDOLPH Room #: REG CLI [facility]#: [id number] Admission: 12/08/18 Attend Phys: Davin Julio DO Discharge: Date of : 42 Report #: [id number] appearing stated age. Pain is rated at around 7/10. HEENT: Normocephalic and atraumatic. Pupils equal, round and reactive to light. EXTREMITIES: Show no clubbing, no cyanosis and no edema. MUSCULOSKELETAL: Upper extremity strength is symmetrical 5/5. There is some giveaway strength noted with biceps flexion, triceps extension on the right when compared to left. There is palpatory tenderness over the joint on the anterior portion of the right shoulder when compared to left. Strength is weakened on the right. Active and passive range of motion of right shoulder met with increasing pains. Cervical provocation testing is met with positive findings, lateral flexion and rotation to right. Spurling's test positive right. ASSESSMENT: 1. Cervical radiculopathy. 2. Cervical spondylosis with radiculopathy. 3. Osteoarthritis of the right shoulder. 4. Chronic right shoulder pain. 5. Chronic intractable pain. PLAN: 1. The patient returns today in followup visit requesting to undergo a cervical epidural injection under fluoroscopic guidance. He reports good efficacy with the previous cervical epidural injection, noting 88% improvement in overall pain lasting for 1.5 months. He returns today in followup visit requesting to undergo next in the series. He denies injury or trauma that may have led to recurrence of pain. We have discussed with the patient the risks and benefits of procedure, states understood and wished to proceed. 2. No medication changes were made at today's visit. The patient to continue current medical therapy as previously prescribed. 3. We will see the patient back in followup visit on an as needed basis for possible next in the series of cervical epidural injections. PROCEDURE NOTE DESCRIPTION OF PROCEDURE: C7-T1 cervical epidural steroid injection under fluoroscopic guidance. After obtaining written consent, the patient was taken back to fluoroscopy suite, placed in prone position with separate pillows under chest and forehead to decrease cervical lordosis. Skin overlying cervical area was then prepped and draped in aseptic fashion. A C7-T1 cervical interspace identified by AP fluoroscopy. Skin and subcutaneous tissue overlying target site of injection anesthetized with 3 mL of 1% lidocaine. A 20-gauge 3-1/2 inch Tuohy needle advanced under fluoroscopic guidance towards the epidural space using midline approach. Epidural space identified using loss [address] [address] PAIN MANAGEMENT CONSULTATION Name: DAPHNE RUDOLPH Room #: REG CLThomas Du#: [id number] Admission: 12/08/18 Attend Phys: Davin Julio DO Discharge: Date of : 42 Report #: [id number] of resistance to air technique. After negative aspiration for heme or cerebrospinal fluid, 1 mL of Omnipaque injected. A cervical epidurogram was confirmed using both AP and oblique fluoroscopy. After negative aspiration for heme or cerebrospinal fluid, 5 mL of a solution containing 2 mL 40 mg per mL, 80 mg total triamcinolone, 3 mL lidocaine 1% injected slowly. Needle retracted [facility], flushed with 1 mL of 1% lidocaine and removed. Sterile bandage placed over injection site. No new motor deficits present in the upper extremities following procedure. The patient tolerated procedure well, carefully escorted to the recovery room in stable condition. No apparent complications. After meeting discharge criteria, the patient discharged home. By: [id number] Davin Julio DO /nt
[2018-12-08 08:08] VITALS: BP 139/70
--- NOTE | 2018-12-08 08:12 | NUR ---
Pain Clinic Assessment: 1. History of Osteoarthritis: Not Applicable History of Rheumatoid Arthritis: Not Applicable 2. Height: 5 ft. 7 in. 170.2 cm. Weight: 168.8 lb. oz. 76.567 kg. Patient's BMI: 26.4 3. Vital Signs: BP: 139/70 Pulse: 70 Resp: 16 Temp: 02 Sat: 98 ECG Mon: 4. Pain Intensity: 7 5. Fall Risk: Dizziness: N Needs help standing or walking: N Fallen in the last 3 months: N Fall risk comments: 6. Patient on Blood Thinner: RILEYQUIS 7. History of Hypertension: Y 8. Opioid Therapy greater than 6 weeks: N Opiate Contract Signed: 9. Risk Assessment Tool Provided: LOW RISK 0/0 10. Functional Assessment Tool: 48/70 11. Recreational Drug Use: Never Drug Type: Tobacco Use: Never Smoker Tobacco Type: Amount or Packs/day: How Many Years: Alcohol Use: No Frequency: Quant:
== END | disposition home or self-care (01) ==
LOC: PAIN 07:18
DX: M47.22 Other spondylosis with radiculopathy, cervical region (principal); M19.011 Primary osteoarthritis, right shoulder; M25.511 Pain in right shoulder; G89.29 Other chronic pain; I48.91 Unspecified atrial fibrillation; I25.2 Old myocardial infarction; Z79.899 Other long term (current) drug therapy; Z79.01 Long term (current) use of anticoagulants; Z88.8 Allergy status to other drugs, medicaments and biological substances; Z98.890 Other specified postprocedural states

== ENCOUNTER → 2019-02-09 | Outpatient (CLI) | payer OTHER, BC ==
[~2019-02-09] VITALS: Ht 170.2 cm; Wt 81.7 kg
[2019-02-09 08:24] VITALS: BP 141/80
--- NOTE | 2019-02-09 08:34 | NUR ---
Pain Clinic Assessment: 1. History of Osteoarthritis: Not Applicable History of Rheumatoid Arthritis: Not Applicable 2. Height: 5 ft. 7 in. 170.2 cm. Weight: 180.2 lb. oz. 81.738 kg. Patient's BMI: 28.2 3. Vital Signs: BP: 141/80 Pulse: 63 Resp: 18 Temp: 02 Sat: 100 ECG Mon: 4. Pain Intensity: 9 5. Fall Risk: Dizziness: N Needs help standing or walking: N Fallen in the last 3 months: N Fall risk comments: 6. Patient on Blood Thinner: ELIQUIS 7. History of Hypertension: Y 8. Opioid Therapy greater than 6 weeks: N Opiate Contract Signed: 9. Risk Assessment Tool Provided: LOW RISK 0/0 10. Functional Assessment Tool: 48/70 11. Recreational Drug Use: Never Drug Type: Tobacco Use: Never Smoker Tobacco Type: Amount or Packs/day: How Many Years: Alcohol Use: No Frequency: Quant:
--- NOTE | 2019-02-10 11:50 | HPC ---
[facility] [place] [address] PAIN MANAGEMENT CONSULTATION Name: DAPHNE RUDOLPH Room #: REG CLKern ValleyTravis.#: [id number] Admission: 02/09/19 ������������������ Attend Phys: Davin Julio DO Discharge: ������������������ Date of : 42 Report #: [id number] THIS REPORT FOR: //name// CC: Gage Julio DATE OF SERVICE: 02/09/2019 REFERRING PHYSICIAN: Gage Lenz M.D. CHIEF COMPLAINT: Neck pain, right upper extremity pain with paresthesias. HISTORY OF PRESENT ILLNESS: As you know, the patient is an extremely pleasant 79-year-old male returning in followup visit to undergo next in the series of cervical epidural injections under fluoroscopic guidance. The patient reports near 100% improvement in overall pain with each injection lasting for up to 2 months at a time. The patient returns today with pain level of 9/10. His pain began about one week ago and progressively worsened. He returns requesting the next in the series of cervical epidural injections. He has discontinued any anticoagulant in preparation for today's procedure. He indicates no injury or trauma that led to recurrence of symptoms. ALLERGIES: TETRACYCLINE and SIMVASTATIN. CURRENT MEDICATIONS: Eliquis 5 mg twice a day, Keppra 500 mg twice a day, atorvastatin 10 mg once a day, diltiazem ER 180 mg once a day, omeprazole 20 mg once a day and metoprolol 25 mg twice a day. SOCIAL HISTORY: The patient denies tobacco, alcohol or IV or illicit drug use. He is retired. He retired years ago. He is unaccompanied today. 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 IMAGING DATA: No new imaging available. PQRS: The patient has known arthritic changes in the neck, bilateral shoulders, right greater than left and lumbar spine and no rheumatoid arthritis. The patient is placing pain intensity 9/10 is not a fall risk, has not had a fall in the last 3 months. He said he is on blood thinners in the form of Eliquis, which he has stopped 3 days ago in preparation for today's procedure. He is treated for hypertension. He is not on long-term opioid. He has a low potential for addiction to opioids. His pain impact score 48/70 indicating moderate interference of daily activities secondary to pain. PHYSICAL EXAMINATION: VITAL SIGNS: Blood pressure 141/80, pulse 63 and respiratory rate 18 and [facility] [address] [place] [address] PAIN MANAGEMENT CONSULTATION Name: DAPHNE RUDOLPH Room #: REG CLI M.R.#: [id number] Admission: 02/09/19 ������������������ Attend Phys: Davin Julio DO Discharge: ������������������ Date of : 42 Report #: [id number] unlabored. The patient is 100% on room air. Height 5 feet 7 inches tall, weight 180.2 pounds and BMI calculated 28.2. GENERAL: Well-developed, well-nourished, well-hydrated 79-year-old male appearing stated age, placing current pain score 9/10. HEENT: Normocephalic and atraumatic. Pupils equal, round and reactive to light. Speech is fluent. EXTREMITIES: Show no clubbing, no cyanosis and no edema. MUSCULOSKELETAL: Upper extremity strength remains symmetrical 5/5, muscle bulk and tone is symmetrical in comparing left upper extremity to right. Active and passive range of motion of the right arm causes intensification of pain located in the shoulder with radiation in a dermatomal distribution. His tendinous reflexes on the right are symmetrical with left, Spurling's test positive right. ASSESSMENT: 1. Cervical radiculopathy. 2. Cervical spondylosis with radiculopathy. 3. Osteoarthritis of the right shoulder. 4. Chronic right shoulder pain. 5. Chronic intractable pain. PLAN: 1. The patient returns today in followup visit requesting to undergo cervical epidural injection under fluoroscopic guidance. The patient reports near 100% improvement in overall pain with these injections. Unfortunately, his symptoms have begun to return. He returns requesting to undergo next in the series of cervical injections to address recurrent pain. He has been advised risks and benefits of procedure, states understood and wished to proceed. 2. No medication changes made at today's visit. The patient will continue current medical therapy as previously prescribed. 3. We will see the patient back in followup visit on an as needed basis for the next in the series of cervical epidural injections. We are hopeful the patient will see long-term benefit with today's procedure. PROCEDURE NOTE DESCRIPTION OF PROCEDURE: Cervical epidural injection under fluoroscopic guidance. After obtaining written consent, the patient was taken back to fluoroscopy suite, placed in prone position with separate pillows under chest and forehead to decrease cervical lordosis. Skin overlying cervical area then prepped and draped in aseptic fashion. The cervical intervertebral spaces were identified by AP fluoroscopy. Skin and subcutaneous tissue overlying target site of injection anesthetized with 3 mL of 1% lidocaine. A 20-gauge 3-1/2 inch Tuohy needle advanced under fluoroscopic guidance towards [address] [address] PAIN MANAGEMENT CONSULTATION Name: DAPHNE RUDOLPH Room #: REG BLU Du#: [id number] Admission: 02/09/19 ������������������ Attend Phys: Davin Julio DO Discharge: ������������������ Date of : 42 Report #: [id number] the epidural space using a midline approach. Epidural space identified using loss of resistance to air technique. After negative aspiration for heme or cerebrospinal fluid, 1 mL of Omnipaque injected. A cervical epidurogram confirmed using both AP and lateral fluoroscopy. After negative aspiration for heme or cerebrospinal fluid, 5 mL of a solution containing 2 mL 40 mg per mL, 80 mg total triamcinolone, 3 mL lidocaine 1% injected slowly. Needle retracted snf, flushed with 1 mL of 1% lidocaine and then removed. Sterile bandage placed over injection site. No new motor deficits present in the upper extremities following procedure. The patient tolerated procedure well, carefully escorted to recovery room in stable condition. No apparent complications. After meeting discharge criteria, the patient discharged home. ��������������������������������������������� <ELECTRONICALLY SIGNED> ���������������������������������������� By: Davin Julio DO ��������������������������������������������� 02/10/19 1150 [id number] Davin Julio DO /nt
== END | disposition home or self-care (01) ==
LOC: PAIN 06:51
DX: M47.22 Other spondylosis with radiculopathy, cervical region (principal); M19.011 Primary osteoarthritis, right shoulder; G89.29 Other chronic pain; Z88.8 Allergy status to other drugs, medicaments and biological substances; Z79.899 Other long term (current) drug therapy; I10 Essential (primary) hypertension

== ENCOUNTER → 2019-03-02 | Outpatient (CLI) | payer OTHER, BC ==
[~2019-03-02] VITALS: Ht 170.2 cm; Wt 81.6 kg
[2019-03-02 08:09] VITALS: BP 157/87
--- NOTE | 2019-03-02 08:13 | NUR ---
Pain Clinic Assessment: 1. History of Osteoarthritis: Not Applicable History of Rheumatoid Arthritis: Not Applicable 2. Height: 5 ft. 7 in. 170.2 cm. Weight: 180.0 lb. oz. 81.648 kg. Patient's BMI: 28.2 3. Vital Signs: BP: 157/87 Pulse: 97 Resp: 14 Temp: 02 Sat: 98 ECG Mon: 4. Pain Intensity: 6-7 5. Fall Risk: Dizziness: N Needs help standing or walking: N Fallen in the last 3 months: N Fall risk comments: 6. Patient on Blood Thinner: MYAHIS 7. History of Hypertension: Y 8. Opioid Therapy greater than 6 weeks: N Opiate Contract Signed: 9. Risk Assessment Tool Provided: LOW RISK 0/0 10. Functional Assessment Tool: 48/70 11. Recreational Drug Use: Never Drug Type: Tobacco Use: Never Smoker Tobacco Type: Amount or Packs/day: How Many Years: Alcohol Use: No Frequency: Quant:
--- NOTE | 2019-03-04 08:41 | HPC ---
[facility] [address] [place] [address] PAIN MANAGEMENT CONSULTATION Name: DAPHNE RUDOLPH Room #: REG Thomas Cris.#: [id number] Admission: 03/02/19 ������������������ Attend Phys: Davin Julio DO Discharge: ������������������ Date of : 42 Report #: [id number] THIS REPORT FOR: //name// CC: Gage Julio DATE OF SERVICE: 03/02/2019 REFERRING PHYSICIAN: Gage Lenz M.D. CHIEF COMPLAINT: Low back pain and , left lower extremity pain with paresthesias. HISTORY OF PRESENT ILLNESS: As you know, the patient is a very pleasant 79-year-old male who returns today in followup visit with onset of low back pain, left lower extremity pain with paresthesias. He has had the diagnosis of lumbar radiculopathy for years, has been tolerating his symptoms well but unfortunately, his symptoms now have reached a level of 6-7/10. He states the pain is exacerbated with walking and sitting for long periods of time. Medications, heat and cold compresses tend to improve pain. He has made today's appointment and discontinued his Eliquis last week in preparation to undergo a lumbar epidural injection under fluoroscopic guidance. The patient denies injury or trauma to his low back or left lower extremity that may have led to symptom occurrence. He has returned today in followup visit to undergo lumbar epidural injection under fluoroscopic guidance. ALLERGIES: TETRACYCLINE and SIMVASTATIN. CURRENT MEDICATIONS: Eliquis 5 mg twice a day, Keppra 500 mg twice a day, atorvastatin 10 mg once a day, diltiazem ER 180 mg per day, omeprazole 20 mg per day and metoprolol 25 mg twice a day. SOCIAL HISTORY: The patient denies tobacco, alcohol or IV or illicit drug use. He is retired, retired years ago, unaccompanied today. IMAGING DATA: No new imaging available. PQRS: The patient has known osteoarthritic changes of the cervical spine, lumbar spine, bilateral hips and knees. No rheumatoid arthritis. He is on blood thinners. He is treated for hypertension and dyslipidemia. He is not a fall risk, has not had a fall in the last 3 months. Pain intensity is rated at 6-7/10. Pain impact score 35/70, moderate interference of daily activities secondary to pain. PHYSICAL EXAMINATION: [facility] [address] [place] [address] PAIN MANAGEMENT CONSULTATION Name: DAPHNE RUDOLPH Room #: REG CLThomas Florian#: [id number] Admission: 03/02/19 ������������������ Attend Phys: Davin Julio DO Discharge: ������������������ Date of : 42 Report #: [id number] VITAL SIGNS: Blood pressure 157/87, pulse is 97 and respiratory rate 14 and unlabored. The patient is 98% on room air. Height 5 feet 7 inches tall and weight 180 pounds. GENERAL: Well-developed, well-nourished and well-hydrated 79-year-old male appearing stated age, placing current pain score at 6-7/10. HEENT: Normocephalic and atraumatic. Pupils equal, round and reactive to light. EXTREMITIES: Show no clubbing, no cyanosis and no edema. MUSCULOSKELETAL: Lower extremity strength appears symmetrical 5/5, muscle bulk and tone is equal and symmetrical in comparing left lower extremity to right. Seated straight leg raising negative. Supine straight leg raising positive on the left. Clover's test negative. Gait mildly antalgic favoring left lower extremity over right. ASSESSMENT: 1. Symptomatic lumbar radiculopathy. 2. Lumbosacral spondylosis with radiculopathy. 3. Lumbar degeneration. 4. Intractable pain. PLAN: 1. The patient returns today in followup visit requesting to undergo a lumbar epidural injection under fluoroscopic guidance. The patient indicates he has had longstanding low back pain, left lower extremity pain with paresthesias that now has reached a level of discomfort that would lead to a return visit. He has discontinued his Eliquis in preparation for a lumbar epidural injection under fluoroscopic guidance. We have discussed those treatments in the past and he does wish to try an epidural injection. He has been advised risks and benefits of the procedure and states he understood and wished to proceed. 2. The patient was provided no changes in medication therapy. He will continue current medication as previously prescribed. 3. The patient did receive and still is noticing 80% improvement in overall pain with cervical epidural injection provided in January. He is very pleased with response to that injection and hopeful to see improvement similar in his low back to address the low back symptoms and left lower extremity pain. PROCEDURE NOTE DESCRIPTION OF PROCEDURE: Lumbar epidural steroid injection under fluoroscopic guidance. After obtaining written consent, the patient was taken back to fluoroscopy suite, placed in prone position pillow under abdomen to decrease lumbar lordosis. Skin overlying lumbosacral area then prepped and draped in aseptic fashion. Lumbar intervertebral spaces were identified by AP fluoroscopy. Skin and subcutaneous tissue overlying target site of injection was anesthetized with [facility] [address] [place] [address] PAIN MANAGEMENT CONSULTATION Name: DAPHNE RUDOLPH Room #: REG Thomas Lynch#: [id number] Admission: 03/02/19 ������������������ Attend Phys: Davin Julio DO Discharge: ������������������ Date of : 42 Report #: [id number] 3 mL of 1% lidocaine. A 20-gauge 3-1/2 inch Tuohy needle advanced under fluoroscopic guidance towards the epidural space using a left paramedian approach. Epidural space identified using loss of resistance to air technique. After negative aspiration for heme or cerebrospinal fluid, 1 mL of Omnipaque injected. A lumbar epidurogram was confirmed using both AP and lateral fluoroscopy. After negative aspiration for heme or cerebrospinal fluid, 5 mL of a solution containing 2 mL 40 mg per mL, 80 mg total triamcinolone, 3 mL lidocaine 1% injected slowly. Needle then retracted approximately half way, flushed with 1 mL of 1% lidocaine and then removed. Sterile bandage placed over injection site. No new motor deficits present in the lower extremities following procedure. The patient tolerated the procedure well, carefully escorted to recovery room in stable condition. No apparent complications. After meeting discharge criteria, the patient discharged home. ��������������������������������������������� <ELECTRONICALLY SIGNED> ���������������������������������������� By: Davin Julio DO ��������������������������������������������� 03/04/19 0841 [id number] Davin Julio DO /nt
== END | disposition home or self-care (01) ==
LOC: PAIN 06:48
DX: M51.16 Intervertebral disc disorders with radiculopathy, lumbar region (principal); M47.27 Other spondylosis with radiculopathy, lumbosacral region; G89.29 Other chronic pain; I10 Essential (primary) hypertension; E78.5 Hyperlipidemia, unspecified; Z88.8 Allergy status to other drugs, medicaments and biological substances; Z79.899 Other long term (current) drug therapy

== ENCOUNTER → 2019-06-15 | Outpatient (CLI) | payer OTHER, BC ==
[~2019-06-15] VITALS: Ht 170.2 cm; Wt 79.8 kg
[~2019-06-15] MED LIST changes: +HYDROCODON-ACE1 EAC7 PO
--- NOTE | ~2019-06-15 | HPC ---
[facility] [address] [place] [address] PAIN MANAGEMENT CONSULTATION Name: DAPHNE RUDOLPH Room #: REG CL M..#: [id number] Admission: 06/15/19 ������������������ Attend Phys: Davin Julio DO Discharge: ������������������ Date of : 42 Report #: [id number] THIS REPORT FOR: //name// CC: LISETH Julio DATE OF SERVICE: 06/15/2019 CHIEF COMPLAINT: Neck pain, right upper extremity pain with paresthesias, chronic low back pain, left lower extremity pain and paresthesias. HISTORY OF PRESENT ILLNESS: As you know, the patient is a very pleasant 79-year-old male who returns today in followup visit, requesting to undergo cervical epidural injection under fluoroscopic guidance to address his continued neck pain, right upper extremity pain with paresthesias. He continues to experience low back pain, left lower extremity pain with paresthesias, but did note benefit with previous lumbar epidural injection. He returns today in followup visit to undergo cervical epidural injection under fluoroscopic guidance to address recurrent cervical radicular symptoms. Most recent cervical epidural injection, which was performed on 02/09/2019 provided excellent benefit until just recently where he has had a slow and progressive return of symptoms. He returns to undergo cervical epidural injection today. ALLERGIES: TETRACYCLINE and SIMVASTATIN. CURRENT MEDICATIONS: Keppra 500 mg twice a day, atorvastatin 10 mg once a day, diltiazem ER 150 mg per day, omeprazole 20 mg per day, metoprolol 25 mg twice a day, Eliquis 5 mg twice a day (held for the past 3 days). SOCIAL HISTORY: The patient denies tobacco, alcohol, IV or illicit drug use. He is retired, retired years ago, unaccompanied today. IMAGING: No new imaging available. PQRS: The patient has known arthritic changes of the cervical spine, lumbar spine, bilateral hips and bilateral knees. No rheumatoid arthritis. He is on blood thinners, but has discontinued the medication 3 days prior to today's visit. He is treated for hypertension and dyslipidemia. He is not a fall risk, has not had a fall in the last 3 months. He is placing pain intensity today at 7-8/10. He is on snf opioid medications, but is a low risk for opioid addiction. He is placing his pain impact score 48/70, severe interference of daily activities secondary to pain. PHYSICAL EXAMINATION: VITAL SIGNS: Blood pressure 147/82, pulse 72, respiratory rate 16 and [facility] [address] [place] [address] PAIN MANAGEMENT CONSULTATION Name: DAPHNE RUDOLPH Room #: REG CLI [facility].#: [id number] Admission: 06/15/19 ������������������ Attend Phys: Davin Julio DO Discharge: ������������������ Date of : 42 Report #: [id number] unlabored. The patient is 100% on room air. Height 5 feet 7 inches tall. Weight 176 pounds. BMI calculated 27.6. GENERAL: Well-developed, well-nourished, well-hydrated, somewhat kyphotic 79-year-old male, appearing stated age, placing current pain score 7-8/10. HEENT: Normocephalic, atraumatic. Pupils equal, round, reactive to light. EXTREMITIES: Show no clubbing, no cyanosis, and no edema. MUSCULOSKELETAL: Upper extremity strength symmetrical 5/5. Slight giveaway strength noted with biceps flexion and extension on the right when compared to left. Cervical provocation testing is met with increasing pain, mainly rightward. There is moderate restriction of motion of the right with rotation and lateral flexion. Mild restriction of the left with rotation and lateral flexion. Spurling's test positive on the right. ASSESSMENT: 1. Cervical radiculopathy. 2. Cervical spondylosis with radiculopathy. 3. Osteoarthritis of the right shoulder. 4. Chronic right shoulder pain. 5. Chronic intractable pain. PLAN: 1. The patient returns today in followup visit having noted excellent benefit with cervical epidural injection provided in January. Unfortunately, he has had a slow and progressive return of symptoms. He returns today to undergo a cervical epidural injection in hopes of improving pain. The patient was advised risks and benefits of the procedure, states understood and wished to proceed. 2. We did discuss with the patient the efficacy of the recent lumbar epidural injection. This provided good benefit, but he continues to experience low back pain and lower extremity symptoms on the left. He wishes to consider a possible future lumbar epidural injection. We will review the case and determine when he can return to undergo this procedure as he is limited to 3 epidural injections in a 6 month period whether these are in the cervical region, in the lumbar region, or combination of both. We will calculate out when he can undergo the next in the series of lumbar epidural injections and provide this patient to return visit at that time. 3. No medication changes made at today's visit. The patient will continue current medical therapy as previously prescribed. 4. We will see the patient back in followup visit on an as needed basis for medication management. Otherwise, we will see him back to undergo a lumbar epidural injection at the next available time frame to undergo an epidural injection. DESCRIPTION OF PROCEDURE: C7-T1 cervical epidural steroid injection under fluoroscopic guidance. After obtaining written consent, the patient was taken back to fluoroscopy [address] [address] PAIN MANAGEMENT CONSULTATION Name: DAPHNE RUDOLPH Room #: REG [facility].#: [id number] Admission: 06/15/19 ������������������ Attend Phys: Davin Julio DO Discharge: ������������������ Date of : 42 Report #: [id number] suite, placed in prone position with separate pillows under chest and forehead to decrease cervical lordosis. Skin overlying the cervical area then prepped and draped in aseptic fashion. The C7-T1 cervical interspace was identified by AP fluoroscopy. Skin and subcutaneous tissue overlying target site of injection was anesthetized with 3 mL of 1% lidocaine. A 20-gauge 3-1/2 inch Tuohy needle advanced under fluoroscopic guidance towards the epidural space using a midline approach. Epidural space identified using loss of resistance to air technique. After negative aspiration for heme or cerebrospinal fluid, 1 mL of Omnipaque injected. A cervical epidurogram confirmed using both AP and lateral fluoroscopy. After negative aspiration for heme or cerebrospinal fluid, 5 mL of solution containing 2 mL 40 mg per mL, 80 mg total triamcinolone and 3 mL lidocaine 1% injected slowly. Needle retracted fci, flushed with 1 mL of 1% lidocaine and then removed. Sterile bandage placed over injection site. No new motor deficits present in the upper extremities following procedure. The patient tolerated procedure well, carefully escorted to recovery room in stable condition. No apparent complications. After meeting discharge criteria, the patient discharged home. ��������������������������������������������� ���������������������������������������� By: ��������������������������������������������� 1708 [id number] Davin Julio DO /katherine
[2019-06-15 09:22] VITALS: BP 147/82
--- NOTE | 2019-06-15 09:39 | NUR ---
Pain Clinic Assessment: 1. History of Osteoarthritis: Not Applicable History of Rheumatoid Arthritis: Not Applicable 2. Height: 5 ft. 7 in. 170.2 cm. Weight: 176.0 lb. oz. 79.833 kg. Patient's BMI: 27.6 3. Vital Signs: BP: 147/82 Pulse: 72 Resp: 16 Temp: 02 Sat: 100 ECG Mon: 4. Pain Intensity: 7-8 5. Fall Risk: Dizziness: N Needs help standing or walking: N Fallen in the last 3 months: N Fall risk comments: 6. Patient on Blood Thinner: MYAHIS 7. History of Hypertension: Y 8. Opioid Therapy greater than 6 weeks: N Opiate Contract Signed: 9. Risk Assessment Tool Provided: LOW RISK 0/0 10. Functional Assessment Tool: 48/70 11. Recreational Drug Use: Never Drug Type: Tobacco Use: Never Smoker Tobacco Type: Amount or Packs/day: How Many Years: Alcohol Use: No Frequency: Quant:
== END | disposition home or self-care (01) ==
LOC: PAIN 08:55
DX: M47.22 Other spondylosis with radiculopathy, cervical region (principal); M19.011 Primary osteoarthritis, right shoulder; M25.511 Pain in right shoulder; I25.2 Old myocardial infarction; G89.29 Other chronic pain; Z79.01 Long term (current) use of anticoagulants; Z88.8 Allergy status to other drugs, medicaments and biological substances; Z79.899 Other long term (current) drug therapy; Z79.891 Long term (current) use of opiate analgesic

== ENCOUNTER → 2019-08-17 | Outpatient (CLI) | payer OTHER, BC ==
[~2019-08-17] VITALS: Ht 170.2 cm; Wt 79.9 kg
[2019-08-17 08:26] VITALS: BP 153/89
--- NOTE | 2019-08-17 08:42 | NUR ---
Pain Clinic Assessment: 1. History of Osteoarthritis: NECK History of Rheumatoid Arthritis: Not Applicable 2. Height: 5 ft. 7 in. 170.2 cm. Weight: 176.2 lb. oz. 79.924 kg. Patient's BMI: 27.6 3. Vital Signs: BP: 153/89 Pulse: 86 Resp: 14 Temp: 02 Sat: 98 ECG Mon: 4. Pain Intensity: 8-9 5. Fall Risk: Dizziness: N Needs help standing or walking: N Fallen in the last 3 months: N Fall risk comments: 6. Patient on Blood Thinner: ELIQUIS 7. History of Hypertension: Y 8. Opioid Therapy greater than 6 weeks: N Opiate Contract Signed: 9. Risk Assessment Tool Provided: LOW RISK 0/0 10. Functional Assessment Tool: 48/70 11. Recreational Drug Use: Never Drug Type: Tobacco Use: Never Smoker Tobacco Type: Amount or Packs/day: How Many Years: Alcohol Use: No Frequency: Quant:
--- NOTE | 2019-08-24 13:40 | HPC ---
[facility] [address] [place] [address] PAIN MANAGEMENT CONSULTATION Name: DAPHNE RUDOLPH Room #: REG CL M..#: [id number] Admission: 08/17/19 ������������������ Attend Phys: Davin Julio DO Discharge: ������������������ Date of : 44 Report #: [id number] THIS REPORT FOR: //name// CC: Gage Julio DATE OF SERVICE: 08/17/2019 CHIEF COMPLAINT: Neck pain, right upper extremity pain with paresthesias, chronic low back pain, left lower extremity pain with paresthesias. HISTORY OF PRESENT ILLNESS: As you know, the patient is a very pleasant 79-year-old male who returns today in followup visit to undergo next in the series of cervical epidural injections under fluoroscopic guidance. The patient is reporting at pain around 8-9/10 today. He denies new injury, new trauma or any changes in medical history since our last visit. We last saw the patient where he was complaining both of cervical radicular symptoms and lumbar radicular symptoms, but states his cervical pain is much more intense today and wishes to undergo a cervical epidural injection under fluoroscopic guidance. The patient has sought surgical consultation and has been advised to trial conservative treatments. If these are ineffective, then move forward with a more permanent solution with surgical decompression. The patient returns to undergo cervical epidural injection as he continues to work up with surgery for his low back. ALLERGIES: TETRACYCLINE AND SIMVASTATIN. CURRENT MEDICATIONS: Keppra, atorvastatin, diltiazem, omeprazole, metoprolol, and Eliquis. SOCIAL HISTORY: The patient denies tobacco, alcohol, IV or illicit drug use. He is retired, retired years ago, unaccompanied today. IMAGING: No new imaging available. PQRS: The patient has known arthritic changes of the cervical spine, lumbar spine, bilateral hips and knees. No rheumatoid arthritis. He is placing pain intensity at 8-9/10, not a fall risk, not had a fall in last 3 months. He is on Eliquis, but has discontinued the medication 3 days prior to today's procedure. He is treated for hypertension. He is on chronic opioids and has a low opioid addiction potential. Pain impact score 48 of 70 indicating moderate to severe interference of daily activities secondary to pain. PHYSICAL EXAMINATION: VITAL SIGNS: Blood pressure 153/89, pulse 86, respiratory rate 14 and [facility] [address] [place] [address] PAIN MANAGEMENT CONSULTATION Name: DAPHNE RUDOLPH Room #: REG CL M.R.#: [id number] Admission: 08/17/19 ������������������ Attend Phys: Davin Julio DO Discharge: ������������������ Date of : 42 Report #: [id number] unlabored. The patient is 98% on room air. Height 5 feet 7 inches tall, weight 176.2 pounds, BMI calculated 27.6. GENERAL: Well-developed, well-nourished, well-hydrated, 79-year-old male appearing stated age, pain is rated today 8-9/10. HEENT: Normocephalic, atraumatic. Pupils are equal, round, reactive to light. EXTREMITIES: Show no clubbing, no cyanosis, and no edema. MUSCULOSKELETAL: Upper extremity strength appears symmetrical 5/5. He is intact to light touch from C5 through T1 dermatomes. Spurling's test remains positive on the right. ASSESSMENT: 1. Cervical radiculopathy. 2. Cervical spondylosis with radiculopathy. 3. Osteoarthritis of the cervical spine. 4. Osteoarthritis of the right shoulder. 5. Chronic right shoulder pain. 6. Chronic intractable pain. PLAN: 1. The patient returns today in followup visit to undergo cervical epidural injection under fluoroscopic guidance to address cervical radicular symptoms. He is indicating pain levels up to 8-9/10. He denies injury or trauma that may have led to symptoms reoccurrence. He returns today to undergo the cervical epidural injection in hopes of improvement in symptoms. He has been advised risks and benefits of procedure. He states understood and wished to proceed. 2. No medication changes made at today's visit. The patient will continue current medical therapy as previously prescribed. 3. We will see the patient back in followup visit on an as needed basis for possible next in the series of lumbar epidural injections. PROCEDURE NOTE DESCRIPTION OF PROCEDURE: C7-T1 cervical epidural steroid injection under fluoroscopic guidance. After obtaining written consent, the patient was taken back to fluoroscopy suite, placed in prone position with pillow under abdomen to decrease lumbar lordosis. Skin overlying lumbosacral area, then prepped and draped in aseptic fashion. The C7-T1 cervical interspace identified by AP fluoroscopy. Skin and subcutaneous tissue overlying target site of injection and anesthetized with 3 mL of 1% lidocaine. A 20-gauge 3-1/2 inch Tuohy needle advanced under fluoroscopic guidance towards the epidural space using a midline approach. Epidural space identified using loss of resistance to air technique. After negative aspiration for heme or cerebrospinal fluid, 1 mL of Omnipaque injected. A cervical epidurogram was [address] [address] PAIN MANAGEMENT CONSULTATION Name: DAPHNE RUDOLPH Room #: REG BLU Du#: [id number] Admission: 08/17/19 ������������������ Attend Phys: Davin Julio DO Discharge: ������������������ Date of : 42 Report #: [id number] confirmed using both AP and lateral fluoroscopy. After negative aspiration for heme or cerebrospinal fluid, 5 mL of a solution containing 2 mL 40 mg per mL, 80 mg total triamcinolone along with 3 mL of lidocaine 1% injected slowly. Needle retracted skilled nursing, flushed with 1 mL of 1% lidocaine and then removed. Sterile bandage placed over injection site. No new motor deficits present in the upper extremities following procedure. The patient tolerated procedure well, carefully escorted to recovery room in stable condition. No apparent complications. After meeting discharge criteria, the patient discharged home. ��������������������������������������������� <ELECTRONICALLY SIGNED> ���������������������������������������� By: Davin Julio DO ��������������������������������������������� 08/24/19 1340 [id number] [id number] Davin Julio DO /nt
== END | disposition home or self-care (01) ==
LOC: PAIN 06:46
DX: M47.22 Other spondylosis with radiculopathy, cervical region (principal); G89.29 Other chronic pain; M54.5 Low back pain; M19.011 Primary osteoarthritis, right shoulder; M25.511 Pain in right shoulder; I10 Essential (primary) hypertension; Z79.899 Other long term (current) drug therapy; Z88.8 Allergy status to other drugs, medicaments and biological substances; Z79.01 Long term (current) use of anticoagulants; Z79.891 Long term (current) use of opiate analgesic; Z87.19 Personal history of other diseases of the digestive system

== ENCOUNTER 2019-10-26 03:50 | Emergency (ER) | payer OTHER, BC ==
[~2019-10-26] VITALS: Ht 170.2 cm; Wt 74.8 kg
[2019-10-26 04:42] LABS: ANION GAP 12 mmol/L (7-16); BUN 23 mg/dL (7-18); CALCIUM 9.8 mg/dL (8.5-10.1); CHLORIDE 105 mmol/L (98-107); CO2 24 mmol/L (21-32); CREATININE 1.4 mg/dL (0.7-1.3); GLUCOSE 99 mg/dL (74-106); POTASSIUM 3.8 mmol/L (3.5-5.1); SODIUM 141 mmol/L (136-145)
[2019-10-26 04:48] LABS: ALBUMIN 3.6 g/dL (3.4-5.0); DIRECT BILIRUBIN < 0.1 mg/dL (<0.1-0.3); SGOT 42 U/L (15-37); SGPT 43 U/L (30-65); TOTAL BILIRUBIN 0.2 mg/dL (<0.1-1.0); TOTAL PROTEIN 7.8 g/dL (6.4-8.2)
[2019-10-26 04:57] LABS: URINE BILIRUBIN NEGATIVE (Negative); URINE BLOOD 3+ (Negative); URINE CLARITY CLEAR; URINE COLOR YELLOW; URINE GLUCOSE-RANDOM* NEGATIVE (Negative); URINE KETONES NEGATIVE (Negative); URINE LEUKOCYTES-REFLEX NEGATIVE (Negative); URINE NITRITE-REFLEX NEGATIVE (Negative); URINE PROTEIN (DIPSTICK) NEGATIVE (Negative); URINE SPECIFIC GRAVITY >= 1.030 (1.005-1.035); URINE UROBILINOGEN 0.2 E.U./dl (0.2-1.0)
[2019-10-26 04:59] LABS: HEMATOCRIT 40.4 % (42.0-52.0); HEMOGLOBIN 13.5 gm/dL (14.0-18.0); MCH 30.9 pg (26.0-34.0); MCHC 33.5 g/dL (28.0-37.0); MCV 92.2 fL (80.0-100.0); PLATELET COUNT 426 thou/uL (150-400); RBC 4.38 mil/uL (4.50-6.00); RDW 13.4 % (10.5-14.5); WBC 5.6 thou/uL (4.0-11.0)
[2019-10-26 05:19] LABS: BACTERIA-REFLEX 1-9 Few /HPF (None Seen); CASTS None Seen /LPF (None Seen); MUCUS 4-6 Moderate strn/LPF (None Seen); SQUAMOUS 0-3 Few /LPF (0-3); URINE RBC >20 Many /HPF (0-2); URINE WBC-REFLEX 0-5 Rare /HPF (0-5)
[2019-10-26 05:20] LABS: CRYSTALS None Seen /LPF (None Seen)
[2019-10-26] MEDS ORDERED: FLOMAX0.4 MG PO ×2 (06:20→06:30)
[2019-10-26] MEDS ORDERED: NORCO 5-325 TA1 EAC1 PO (06:20)
[2019-10-26] MEDS ORDERED: SENNA-DOCUSATE1 EAC1 PO ×2 (06:20→06:30)
[2019-10-26 06:43] VITALS: BP 156/84
[2019-10-26 06:52] LABS: ABSOLUTE NEUTROPHILS 2.6 thou/uL (1.4-8.2)
[2019-10-26 06:53] LABS: PLATELET ESTIMATE INCREASED
== END 2019-10-26 06:45 | disposition home or self-care (01) ==
LOC: ER 03:50
PROVIDERS: Emergency Medicine
DX: N20.1 Calculus of ureter (principal); I10 Essential (primary) hypertension; Z87.442 Personal history of urinary calculi; Z96.642 Presence of left artificial hip joint; Z87.891 Personal history of nicotine dependence; Z88.1 Allergy status to other antibiotic agents; Z88.8 Allergy status to other drugs, medicaments and biological substances

== ENCOUNTER → 2019-11-03 | Outpatient (CLI) | payer OTHER, BC ==
[~2019-11-03] VITALS: Ht 170.2 cm; Wt 79.7 kg
[~2019-11-03] MED LIST changes: +FLOMAX0.4 MG PO; +NORCO 5-325 TA1 EAC1 PO; +SENNA-DOCUSATE1 EAC1 PO
[2019-11-03 13:47] VITALS: BP 139/96
--- NOTE | 2019-11-03 13:58 | NUR ---
Pain Clinic Assessment: 1. History of Osteoarthritis: NECK History of Rheumatoid Arthritis: Not Applicable 2. Height: 5 ft. 7 in. 170.2 cm. Weight: 175.6 lb. oz. 79.652 kg. Patient's BMI: 27.5 3. Vital Signs: BP: 139/96 Pulse: 86 Resp: 16 Temp: 02 Sat: 100 ECG Mon: 4. Pain Intensity: 8-9 5. Fall Risk: Dizziness: N Needs help standing or walking: N Fallen in the last 3 months: N Fall risk comments: 6. Patient on Blood Thinner: ELIQUIS 7. History of Hypertension: Y 8. Opioid Therapy greater than 6 weeks: N Opiate Contract Signed: 9. Risk Assessment Tool Provided: LOW RISK 0/0 10. Functional Assessment Tool: 48/70 11. Recreational Drug Use: Never Drug Type: Tobacco Use: Never Smoker Tobacco Type: Amount or Packs/day: How Many Years: Alcohol Use: No Frequency: Quant:
--- NOTE | 2019-11-09 12:56 | HPC ---
[facility] [place] [address] PAIN MANAGEMENT CONSULTATION Name: DAPHNE RUDOLPH [id number] Admission: 11/03/19 Attend Phys: Davin Julio DO Discharge: Date of : 42 Report #: [id number] THIS REPORT FOR: //name// CC: Gage Julio DATE OF SERVICE: 11/03/2019 CHIEF COMPLAINT: Neck pain, right upper extremity pain with paresthesias. HISTORY OF PRESENT ILLNESS: As you know, the patient is a very pleasant 79-year-old male who returns today in followup visit to undergo next in the series of cervical epidural injections under fluoroscopic guidance. He has had recurrence of pain now involving the neck and right upper extremity to which he places pain score at 8-9/10. He returns today to undergo next in the series of epidural injections. He has been off his Eliquis in preparation for today's procedure for the past 3 days. He returns today in followup visit for this cervical epidural injection to address the neck and right shoulder pain he has been experiencing for the past week and a half. He denies injury or trauma. ALLERGIES: TETRACYCLINE and SIMVASTATIN. CURRENT MEDICATIONS: Keppra, atorvastatin, diltiazem, omeprazole, metoprolol, and Eliquis. SOCIAL HISTORY: The patient denies tobacco, alcohol, IV or illicit drug use. He is retired, retired years ago, unaccompanied today. IMAGING: No new imaging available. PQRS: The patient has arthritic changes of the cervical spine, lumbar spine, bilateral hips and knees, bilateral shoulders. No rheumatoid arthritis. He is placing pain intensity today at 8-9/10. He has no fall risk, has not had a fall in the last 3 months. He is on blood thinners in the form of Eliquis, but has discontinued the medication in preparation for today's procedure. He is treated for hypertension. He is not on chronic opioids, has a low opioid addiction potential, placing pain impact score of 48/70, severe interference of daily activities secondary to pain. PHYSICAL EXAMINATION: VITAL SIGNS: Blood pressure 139/96, pulse 86, respiratory rate 16 and unlabored. The patient is 100% on room air. Height 5 feet 7 inches tall, weighs 175.6 pounds and BMI calculated 27.5. GENERAL: Well-developed, well-nourished, well-hydrated 79-year-old male appearing stated age, pain is rated today at 8-9/10. [place] [address] PAIN MANAGEMENT CONSULTATION Name: DAPHNE RUDOLPH [facility] [id number] Admission: 11/03/19 Attend Phys: Davin Julio DO Discharge: Date of : 42 Report #: [id number] HEENT: Normocephalic, atraumatic. Extraocular muscles are intact. Sclerae nonicteric, without injection. Speech is fluent. The patient deemed a good historian. EXTREMITIES: Show no clubbing, no cyanosis, and no edema. MUSCULOSKELETAL: Upper extremity strength is weakened on the right when compared to left. This is noted mainly due to pain generation with shoulder abduction as well as cervical rotation with trying to lift his arm in a forward flexed fashion. Spurling's test is positive on the right. Muscle bulk and tone appears symmetrical in the upper extremities. There is mild crepitus noted with movement, both in active and passive range of motion of the right shoulder. ASSESSMENT: 1. Cervical radiculopathy. 2. Cervical spondylosis with radiculopathy. 3. Osteoarthritis of the cervical spine. 4. Osteoarthritis of the right shoulder. 5. Chronic right shoulder pain. 6. Chronic intractable pain. PLAN: 1. The patient has returned today in followup visit requesting to undergo cervical epidural injection under fluoroscopic guidance to address recurrent cervical radicular symptoms. The patient and I discussed the risks and the benefits of this procedure. These risks include but are not necessarily limited to bleeding, bruising, infection, worsening pain, no relief of pain, also risk of temporary or permanent muscle weakness, temporary or permanent nerve damage, possible paralysis, post-dural puncture headache and . The patient states understood and wished to proceed. 2. No medication changes made at today's visit. The patient will continue current medical therapy as prior prescribed. 3. We will see the patient back in followup visit on an as needed basis for possible next in the series of cervical epidural injections under fluoroscopic guidance. I did advise the patient if he does not note improvement in his right shoulder pain over the next week to week and a half, he can return to undergo an intraarticular right shoulder injection to address right shoulder pain. PROCEDURE NOTE PROCEDURE: C7-T1 cervical epidural steroid injection under fluoroscopic guidance. DESCRIPTION OF PROCEDURE: After obtaining written consent, the patient was taken back to fluoroscopy suite, placed in prone position with separate pillows under chest and forehead to decrease cervical lordosis. Skin overlying cervical area then prepped and draped in aseptic fashion. C7-T1 cervical interspace identified by AP fluoroscopy. Skin and subcutaneous tissue overlying target [address] [address] PAIN MANAGEMENT CONSULTATION Name: DAPHNE RUDOLPH Room #: REG CLI Cris#: [id number] Admission: 11/03/19 Attend Phys: Davin Julio DO Discharge: Date of : 42 Report #: [id number] site of injection anesthetized with 3 mL of 1% lidocaine. A 20-gauge 3-1/2 inch Tuohy needle advanced under fluoroscopic guidance towards the epidural space using a midline approach. Epidural space identified using loss of resistance to air technique. After negative aspiration for heme or cerebrospinal fluid, 1 mL of Omnipaque injected. A cervical epidurogram was confirmed using both AP and lateral fluoroscopy. After negative aspiration for heme or cerebrospinal fluid, 5 mL of a solution containing 2 mL 40 mg per mL, 80 mg total triamcinolone along with 3 mL of lidocaine 1% injected slowly. Needle retracted snf, flushed with 1 mL of 1% lidocaine and then removed. Sterile bandage placed over injection site. No new motor deficits present in the upper extremities following procedure. The patient tolerated procedure well, carefully escorted to recovery room in stable condition. No apparent complications. After meeting discharge criteria, the patient discharged home. <ELECTRONICALLY SIGNED> By: Davin Julio DO 11/09/19 1256 1537 [id number] Davin Julio DO /nt
== END | disposition home or self-care (01) ==
LOC: PAIN
DX: M50.13 Cervical disc disorder with radiculopathy, cervicothoracic region (principal); M47.22 Other spondylosis with radiculopathy, cervical region; M19.011 Primary osteoarthritis, right shoulder; G89.29 Other chronic pain; I21.4 Non-ST elevation (NSTEMI) myocardial infarction; I48.91 Unspecified atrial fibrillation; I48.92 Unspecified atrial flutter; Z88.8 Allergy status to other drugs, medicaments and biological substances; Z79.899 Other long term (current) drug therapy

== ENCOUNTER → 2020-01-05 | Outpatient (CLI) | payer OTHER, BC ==
[~2020-01-05] VITALS: Ht 170.2 cm; Wt 80.1 kg
[~2020-01-05] MED LIST changes: +LISINOPRIL20 MG PO
[2020-01-05 13:04] VITALS: BP 148/93
--- NOTE | 2020-01-05 13:05 | NUR ---
Pain Clinic Assessment: 1. History of Osteoarthritis: NECK History of Rheumatoid Arthritis: Not Applicable 2. Height: 5 ft. 7 in. 170.2 cm. Weight: 176.6 lb. oz. 80.105 kg. Patient's BMI: 27.7 3. Vital Signs: BP: 148/93 Pulse: 75 Resp: 18 Temp: 02 Sat: 98 ECG Mon: 4. Pain Intensity: 9 5. Fall Risk: Dizziness: N Needs help standing or walking: N Fallen in the last 3 months: Y Fall risk comments: HAD A FALL 3 DAYS AGO 6. Patient on Blood Thinner: RILEYQUIS 7. History of Hypertension: Y 8. Opioid Therapy greater than 6 weeks: N Opiate Contract Signed: 9. Risk Assessment Tool Provided: LOW RISK 0/0 10. Functional Assessment Tool: 48/70 11. Recreational Drug Use: Never Drug Type: Tobacco Use: Never Smoker Tobacco Type: Amount or Packs/day: How Many Years: Alcohol Use: No Frequency: Quant:
--- NOTE | 2020-01-07 07:46 | HPC ---
[facility] [place] [address] PAIN MANAGEMENT CONSULTATION Name: DAPHNE RUDOLPH [id number] Admission: 01/05/20 Attend Phys: Davin Julio DO Discharge: Date of : 42 Report #: [id number] THIS REPORT FOR: cc: Gage Lenz MD, Bernard O. MD Johnson, James E. DO ~ THIS REPORT FOR: //name// CC: Gage Julio DATE OF SERVICE: 01/05/2020 REFERRING PHYSICIAN: Gage Lenz MD CHIEF COMPLAINT: Neck pain, right upper extremity pain and paresthesias. HISTORY OF PRESENT ILLNESS: As you know, the patient is a very pleasant 79-year-old male returning in followup visit to undergo cervical epidural injection under fluoroscopic guidance. The patient unfortunately has had a recurrence of pain. He is now placing pain score at 9/10. He states that his pain is aching and shooting in sensation, exacerbated with turning his head, lifting his right arm, improves with medications, heat and cold compresses and epidural injections. He reports 90% improvement in overall pain with previous cervical epidural injection lasting for nearly 7 months. He is denying new injury, new trauma or any changes in medical history since our last visit. He returns today to undergo cervical epidural injection under fluoroscopic guidance. ALLERGIES: TETRACYCLINE and SIMVASTATIN. CURRENT MEDICATIONS: See chart. SOCIAL HISTORY: The patient denies tobacco, alcohol, IV or illicit drug use. He is retired, retired years ago, unaccompanied today. IMAGING: There is no new imaging available. PQRS: The patient has known arthritic changes of the cervical spine, lumbar spine, bilateral hips, knees and shoulders. No rheumatoid arthritis. He is placing pain intensity at 9/10. He is not a fall risk, but did have a fall about 3 days ago while tripping over objects at home. He has rectified this problem by cleaning up his area. He is currently on Eliquis, but stopped the medication 3 days ago in preparation for an epidural injection. He does take treatment for hypertension. He is on opioids, but has a low opiate addiction [facility] [address] [place] [address] PAIN MANAGEMENT CONSULTATION Name: DAPHNE RUDOLPH Room #: REG [facility]#: [id number] Admission: 01/05/20 Attend Phys: Davin Julio DO Discharge: Date of : 42 Report #: [id number] potential. Pain impact score 48/70, severe interference of daily activities secondary to pain. PHYSICAL EXAMINATION: VITAL SIGNS: Blood pressure 148/93, pulse 75, respiratory rate 18 and unlabored. The patient is 98% on room air. Height 5 feet 7 inches tall, weight 176.6 pounds, BMI calculated 27.7. GENERAL: Well-developed, well-nourished, well-hydrated 79-year-old male appearing stated age, pain is rated today 9/10. HEENT: Normocephalic, atraumatic. Pupils equal, round, reactive to light. EXTREMITIES: Show no clubbing, no cyanosis, and no edema. MUSCULOSKELETAL: Upper extremity strength appears symmetrical 5/5. There is giveaway strength noted with abduction of the right arm compared to left. Muscle bulk and tone appears equal and symmetrical. There does appear to be some weakness in the right upper extremity. This appears to be related more to pain generation. Spurling's test positive on the right, negative left. ASSESSMENT: 1. Cervical radiculopathy. 2. Cervical spondylosis with radiculopathy. 3. Osteoarthritis of the cervical spine. 4. Osteoarthritis of the right shoulder. 5. Chronic right shoulder pain. 6. Chronic intractable pain. PLAN: 1. The patient returns today in followup visit to undergo cervical epidural injection under fluoroscopic guidance. He reports 90% improvement in overall pain lasting for nearly 7 weeks with previous cervical epidural injection. He returns today to undergo next in the series. He describes pain as similar to his previous evaluations. He has suffered no new injury or trauma. He returns today to undergo this next in the series. 2. No medication changes made at today's visit. The patient will continue current medical therapy as prior prescribed. 3. We will see the patient back in followup visit on an as needed basis for possible next in the series of cervical epidural injections. PROCEDURE NOTE. DESCRIPTION OF PROCEDURE: C7-T1 cervical epidural steroid injection under fluoroscopic guidance. After obtaining written consent, the patient was taken back to fluoroscopy suite, placed in prone position with separate pillows under chest and forehead to decrease cervical lordosis. Skin overlying cervical area then prepped and draped in aseptic fashion. C7-T1 cervical interspace identified by AP fluoroscopy. Skin and subcutaneous tissue overlying target site injection [address] [address] PAIN MANAGEMENT CONSULTATION Name: DAPHNE RUDOLPH Room #: REG BLU Du#: [id number] Admission: 01/05/20 Attend Phys: Davin Julio DO Discharge: Date of : 42 Report #: [id number] anesthetized with 3 mL of 1% lidocaine. A 20-gauge 3-1/2 inch Tuohy needle advanced under fluoroscopic guidance towards the epidural space using a midline approach. Epidural space identified using loss of resistance to air technique. After negative aspiration for heme or cerebrospinal fluid, 1 mL of Omnipaque injected. A cervical epidurogram confirmed using both AP and oblique fluoroscopy. After negative aspiration for heme or cerebrospinal fluid, 5 mL of a solution containing 2 mL 40 mg per mL, 80 mg total triamcinolone along with 3 mL lidocaine 1% injected slowly. Needle retracted retirement, flushed with 1 mL of 1% lidocaine and then removed. Sterile bandage placed over injection site. No new motor deficits present in lower or upper extremities following procedure. The patient tolerated procedure well, carefully escorted to recovery room in stable condition. No apparent complication. After meeting discharge criteria, the patient discharged home. <ELECTRONICALLY SIGNED> By: Davin Julio DO 01/07/20 0746 1450 [id number] Davin Julio DO /nt
== END | disposition home or self-care (01) ==
LOC: PAIN 06:51
DX: M47.22 Other spondylosis with radiculopathy, cervical region (principal); G89.29 Other chronic pain; M19.011 Primary osteoarthritis, right shoulder; M25.511 Pain in right shoulder; I10 Essential (primary) hypertension; I48.92 Unspecified atrial flutter; Z98.890 Other specified postprocedural states; Z79.891 Long term (current) use of opiate analgesic; Z88.8 Allergy status to other drugs, medicaments and biological substances; Z79.01 Long term (current) use of anticoagulants; Z79.899 Other long term (current) drug therapy

== ENCOUNTER → 2020-02-04 | Outpatient (CLI) | payer OTHER, BC | LOC: SJCVC 09:58 | DX: I21.19 ST elevation (STEMI) myocardial infarction involving other coronary artery of inferior wall (principal); I21.29 ST elevation (STEMI) myocardial infarction involving other sites; R94.31 Abnormal electrocardiogram [ECG] [EKG]; I25.10 Atherosclerotic heart disease of native coronary artery without angina pectoris; I48.0 Paroxysmal atrial fibrillation; M15.0 Primary generalized (osteo)arthritis; E78.5 Hyperlipidemia, unspecified; G47.30 Sleep apnea, unspecified; Z79.899 Other long term (current) drug therapy; Z87.891 Personal history of nicotine dependence ==

== ENCOUNTER → 2020-03-21 | Outpatient (CLI) | payer OTHER, BC ==
[~2020-03-21] VITALS: Ht 170.2 cm; Wt 81.6 kg
[2020-03-21 10:30] VITALS: BP 134/88
--- NOTE | 2020-03-21 10:44 | NUR ---
Pain Clinic Assessment: 1. History of Osteoarthritis: NECK History of Rheumatoid Arthritis: Not Applicable 2. Height: 5 ft. 7 in. 170.2 cm. Weight: 180.0 lb. oz. 81.648 kg. Patient's BMI: 28.2 3. Vital Signs: BP: 134/88 Pulse: 75 Resp: 16 Temp: 02 Sat: 100 ECG Mon: 4. Pain Intensity: 8 5. Fall Risk: Dizziness: N Needs help standing or walking: N Fallen in the last 3 months: N Fall risk comments: HAD A FALL 3 DAYS AGO 6. Patient on Blood Thinner: ZITA 7. History of Hypertension: Y 8. Opioid Therapy greater than 6 weeks: N Opiate Contract Signed: 9. Risk Assessment Tool Provided: LOW RISK 0/0 10. Functional Assessment Tool: 48/70 11. Recreational Drug Use: Never Drug Type: Tobacco Use: Never Smoker Tobacco Type: Amount or Packs/day: How Many Years: Alcohol Use: No Frequency: Quant:
--- NOTE | 2020-03-22 12:25 | HPC ---
[facility] [place] [address] PAIN MANAGEMENT CONSULTATION Name: DAPHNE RUDOLPH Room #: REG Thomas Brandyn.#: [id number] Admission: 03/21/20 Attend Phys: Davin Julio DO Discharge: Date of : 42 Report #: [id number] THIS REPORT FOR: cc: Gage Lenz MD, Bernard O. MD Johnson, James E. DO ~ DATE OF SERVICE: 03/21/2020 CHIEF COMPLAINT: Neck pain, right upper extremity pain with paresthesias. HISTORY OF PRESENT ILLNESS: As you know, the patient is an extremely pleasant 80-year-old male who has returned today in followup visit requesting to undergo a cervical epidural injection under fluoroscopic guidance. Previous cervical epidural injection gave improvement of 80%, lasting for nearly 2 months. Unfortunately, the patient's symptoms have begun to return. He denies any injury or trauma that may have led to symptom reoccurrence. He feels the epidural injections with intermittent use of medications works beneficially for his ongoing pain issues. He wishes to continue this current treatment course. He returns for a cervical epidural injection under fluoroscopic guidance. ALLERGIES: TETRACYCLINE AND SIMVASTATIN. CURRENT MEDICATIONS: See the chart. SOCIAL HISTORY: The patient denies tobacco, alcohol, IV or illicit drug use. He is retired, retired years ago. He is unaccompanied at today's visit. IMAGING: No new imaging available. PQRS: The patient has arthritic changes of the cervical spine, lumbar spine, bilateral hips, knees and shoulders. No rheumatoid arthritis. He is placing pain intensity today at 8/10. He is not a fall risk typically, but did have a fall about 3 days ago, tripping over an object at home. He states he is corrected for this issue and has not had a fall since. He is on a blood thinner in the form of Eliquis and discontinued this medication for the epidural injection 72 hours ago. He is on no chronic opioids. He has a low opiate addiction potential. Pain impact score is 48/70, moderate interference of daily activities secondary to pain. PHYSICAL EXAMINATION: VITAL SIGNS: Blood pressure 134/88, pulse 75, respiratory rate 16 and unlabored. The patient is 100% on room air. Height 5 feet 7 inches tall, weight is 180 pounds, BMI calculated 28.2. GENERAL: Well-developed, well-nourished, well-hydrated 80-year-old male appearing stated age, pain is rated today 8/10. [address] [address] PAIN MANAGEMENT CONSULTATION Name: DAPHNE RUDOLPH Room #: REG [facility]#: [id number] Admission: 03/21/20 Attend Phys: Davin uJlio DO Discharge: Date of : 42 Report #: [id number] HEENT: Normocephalic, atraumatic. Pupils are equal and round. NEUROLOGIC: Speech is fluent. The patient deemed a good historian. EXTREMITIES: Show no clubbing, no cyanosis, no edema. MUSCULOSKELETAL: Upper extremity strength remains symmetrical 5/5. Muscle bulk and tone is equal and symmetrical when comparing left upper extremity to right. Giveaway strength is once again noted with abduction of the right arm compared to left. Spurling's test positive right, negative left. He is intact to light touch from C5-T1 dermatomes. ASSESSMENT: 1. Cervical radiculopathy. 2. Cervical spondylosis with radiculopathy. 3. Osteoarthritis of the cervical spine. 4. Osteoarthritic changes of the right shoulder. 5. Chronic intractable pain. PLAN: 1. The patient returns today in followup visit to undergo a cervical epidural injection under fluoroscopic guidance. He reports a 90% improvement in overall pain with the previous epidural injection provided at our visit of 01/05/20. Unfortunately, his symptoms have begun to return. He denies any inciting injury or trauma. He returns today to undergo next in the series of cervical epidural injections. The patient has been advised risks and benefits of a cervical epidural injection. These risks include but are not necessarily limited to bleeding, bruising, infection, worsening pain, no relief of pain, also risk of temporary or permanent muscle weakness, temporary or permanent nerve damage, possible paralysis and . The patient states understood and wished to proceed. The patient and I also did discuss his risks in regards to the COVID virus and epidural steroid injections. He runs the risk of potentially becoming more susceptible to the disease process due to the immune response decrease with steroid exposure. There is also a potential that if currently infected with COVID, notice worsening of symptoms, which have been shown with testing of patients with active COVID disease. The patient states he understands his risks in regards to the COVID-19 and wishes to proceed. 2. No medication changes made at today's visit. The patient will continue current medical therapy as previously prescribed. 3. We will see the patient back in followup visit on an as needed basis for the next in the cervical epidural injections. We are hopeful the patient will see good and prolonged benefit with today's procedure. PROCEDURE NOTE DESCRIPTION OF PROCEDURE: C7-T1 cervical epidural steroid injection under fluoroscopic guidance. [address] [address] PAIN MANAGEMENT CONSULTATION Name: DAPHNE RUDOLPH Room #: REG CLThomas Du#: [id number] Admission: 03/21/20 Attend Phys: Davin Julio DO Discharge: Date of : 42 Report #: [id number] After obtaining written consent, the patient was taken back to fluoroscopy suite, placed in a prone position with separate pillows under chest and forehead to decrease cervical lordosis. Skin overlying the cervical area then prepped and draped in an aseptic fashion. C7-T1 cervical interspace was identified by AP fluoroscopy. Skin and subcutaneous tissue overlying target site of injection anesthetized with 2 mL of 1% lidocaine. A 20-gauge 3-1/2 inch Tuohy needle advanced under fluoroscopic guidance towards the epidural space using a parasagittal approach. Epidural space identified using loss of resistance to air technique. After negative aspiration for heme or cerebrospinal fluid, 1 mL of Omnipaque injected. A cervical epidurogram was confirmed using both AP and oblique fluoroscopy. After negative aspiration for heme or cerebrospinal fluid, 5 mL of a solution containing 2 mL 40 mg per mL, 80 mg total triamcinolone along with 3 mL lidocaine 1% injected slowly. Needle retracted mcfp, flushed with 1 mL of 1% lidocaine and removed. Sterile bandage placed over injection site. There were no new motor deficits present in the upper extremities following the procedure. The patient tolerated the procedure well, carefully escorted to recovery room in stable condition. No apparent complications. After meeting discharge criteria, the patient discharged home. <ELECTRONICALLY SIGNED> By: Davin Julio DO 03/22/20 1225 1314 1342 Davin Julio DO /katherine
== END | disposition home or self-care (01) ==
LOC: PAIN 09:14
DX: M47.22 Other spondylosis with radiculopathy, cervical region (principal); G89.29 Other chronic pain; M19.011 Primary osteoarthritis, right shoulder; M19.90 Unspecified osteoarthritis, unspecified site; Z98.890 Other specified postprocedural states; Z88.0 Allergy status to penicillin; Z79.899 Other long term (current) drug therapy; Z79.01 Long term (current) use of anticoagulants

== ENCOUNTER → 2020-06-21 | Outpatient (CLI) | payer OTHER, BC ==
[~2020-06-21] VITALS: Ht 170.2 cm; Wt 80.9 kg
[2020-06-21 13:14] VITALS: BP 132/79
--- NOTE | 2020-06-21 13:35 | NUR ---
Pain Clinic Assessment: 1. History of Osteoarthritis: NECK History of Rheumatoid Arthritis: Not Applicable 2. Height: 5 ft. 7 in. 170.2 cm. Weight: 178.4 lb. oz. 80.922 kg. Patient's BMI: 27.9 3. Vital Signs: BP: 132/79 Pulse: 74 Resp: 16 Temp: 02 Sat: 100 ECG Mon: 4. Pain Intensity: 9 5. Fall Risk: Dizziness: N Needs help standing or walking: N Fallen in the last 3 months: N Fall risk comments: HAD A FALL 3 DAYS AGO 6. Patient on Blood Thinner: ZITA 7. History of Hypertension: Y 8. Opioid Therapy greater than 6 weeks: N Opiate Contract Signed: 9. Risk Assessment Tool Provided: LOW RISK 0/0 10. Functional Assessment Tool: 48/70 11. Recreational Drug Use: Never Drug Type: Tobacco Use: Never Smoker Tobacco Type: Amount or Packs/day: How Many Years: Alcohol Use: No Frequency: Quant:
== END | disposition home or self-care (01) ==
LOC: PAIN 07:08
PROVIDERS: ATTEND Anesthesiology Pain Medicine
DX: M54.12 Radiculopathy, cervical region (principal); I48.91 Unspecified atrial fibrillation; Z98.890 Other specified postprocedural states; Z79.899 Other long term (current) drug therapy; Z79.01 Long term (current) use of anticoagulants

== ENCOUNTER → 2020-08-08 | Outpatient (CLI) | payer OTHER, BC | LOC: SJCVC 09:30 | PROVIDERS: ATTEND Internal Medicine | DX: I48.0 Paroxysmal atrial fibrillation (principal); I25.10 Atherosclerotic heart disease of native coronary artery without angina pectoris; E78.5 Hyperlipidemia, unspecified; Z87.891 Personal history of nicotine dependence; Z79.899 Other long term (current) drug therapy ==

== ENCOUNTER → 2020-09-26 | Outpatient (CLI) | payer OTHER, BC ==
[~2020-09-26] VITALS: Ht 170.2 cm; Wt 81.2 kg
[2020-09-26 08:50] VITALS: BP 141/77
--- NOTE | 2020-09-26 08:57 | NUR ---
Pain Clinic Assessment: 1. History of Osteoarthritis: NECK History of Rheumatoid Arthritis: Not Applicable 2. Height: 5 ft. 7 in. 170.2 cm. Weight: 179.0 lb. oz. 81.194 kg. Patient's BMI: 28.0 3. Vital Signs: BP: 141/77 Pulse: 85 Resp: 16 Temp: 02 Sat: 97 ECG Mon: 4. Pain Intensity: 9 5. Fall Risk: Dizziness: N Needs help standing or walking: N Fallen in the last 3 months: N Fall risk comments: HAD A FALL 3 DAYS AGO 6. Patient on Blood Thinner: ZITA 7. History of Hypertension: Y 8. Opioid Therapy greater than 6 weeks: N Opiate Contract Signed: 9. Risk Assessment Tool Provided: LOW RISK 0/0 10. Functional Assessment Tool: 48/70 11. Recreational Drug Use: Never Drug Type: Tobacco Use: Never Smoker Tobacco Type: Amount or Packs/day: How Many Years: Alcohol Use: No Frequency: Quant:
--- NOTE | 2020-09-26 16:14 | HPC ---
[facility] [place] [address] PAIN MANAGEMENT CONSULTATION Name: DAPHNE RUDOLPH Room #: REG CLThomas Lynch.#: [id number] Admission: 09/26/20 Attend Phys: Davin Julio DO Discharge: Date of : 42 Report #: [id number] CC: Gage Julio DATE OF SERVICE: 09/26/2020 REFERRING PHYSICIAN: Gage Lenz MD CHIEF COMPLAINT: Neck pain, right upper extremity pain with paresthesias. HISTORY OF PRESENT ILLNESS: As you know, the patient is a pleasant 80-year-old male who returns today in followup visit with recurrent cervical radiculopathy and right upper extremity pain with paresthesias. The patient states he was doing very well until he exacerbated his symptoms while installing a garbage disposal in a friend's home. He states this exacerbated his symptoms and now he is experiencing pain as high as 9/10. The patient states that he delayed his return to our clinic by 2 weeks in hopes of resolution of symptoms which did not occur. He returns today in followup visit to undergo cervical epidural injection under fluoroscopic guidance to address recurrent cervical radiculopathy for which he places pain at 9/10. ALLERGIES: TETRACYCLINE and SIMVASTATIN. CURRENT MEDICATIONS: See chart. SOCIAL HISTORY: The patient denies tobacco, alcohol, IV or illicit drug use. He is retired, retired years ago, unaccompanied at today's visit. IMAGING: No new imaging available. PQRS: The patient has known arthritic changes of the cervical spine, lumbar spine, bilateral knees, bilateral hips and shoulders. No rheumatoid arthritis. He is placing pain intensity today at 9/10. He is not a fall risk, but has had a fall 3 days ago, apparently tripped over an object in the garage. He suffers no residual injury. He is on blood thinners in the form of Eliquis, but discontinued the medication 3 days ago. He is treated for hypertension. He is on chronic opioids, but has a low opioid addiction potential, pain impact today 48/70, severe interference of daily activities secondary to pain. PHYSICAL EXAMINATION: VITAL SIGNS: Blood pressure 141/77, pulse 85, respiratory rate 16 and unlabored. The patient is 97% on room air. Height 5 feet 7 inches tall, weight 179 pounds, BMI calculated 28.0. GENERAL: Well-developed, well-nourished, well-hydrated 80-year-old male, appearing stated age, pain is rated today 9/10. HEENT: Normocephalic, atraumatic. Pupils are round and reactive. Extraocular muscles are intact. EXTREMITIES: Show no clubbing, no cyanosis and no appreciable edema. MUSCULOSKELETAL: Upper extremity strength appears symmetrical 5/5, intact to light touch from C5 through T1 dermatomes, though he is reporting some decreased tactile sensation in the distal portion of the C6 dermatome on the right. Airport Tower Controller strength appears normal. Muscle bulk and tone is equal and symmetrical in upper extremities. Spurling's test positive right, negative left. Cervical provocation testing is met with slight increase in pain, specifically with lateral flexion and rotation to the right. ASSESSMENT: 1. Symptomatic lumbar radiculopathy. 2. Cervical spondylosis with radiculopathy. 3. Osteoarthritis of the cervical spine. 4. Chronic intractable pain. PLAN: 1. The patient returns today in followup visit having exacerbated his neck pain and right upper extremity pain with installing a garbage disposal for a neighbor. Apparently, this occurred quite quickly during the activity and has progressed. He trialled conservative treatment along with rest, relaxation, but did not see resolution of symptoms. He returns today in followup visit to undergo cervical epidural injection under fluoroscopic guidance to address recurrent cervical radiculopathy. 2. No medication changes made at today's visit. The patient will continue current medical therapy as prior prescribed. 3. The patient was advised risks and benefits of a cervical epidural injection. These risks include, but are not necessarily limited to; bleeding, bruising, infection, worsening of pain, no relief of pain, temporary or permanent muscle weakness, temporary or permanent nerve damage, possible paralysis and . The patient states understood and wished to proceed. 4. We plan to see the patient back in followup visit on an as needed basis for possible next in the series of epidural injections. We are hopeful the patient will see good and prolonged benefit with today's procedure. We will see him back in followup as needed. PROCEDURE NOTE DESCRIPTION OF PROCEDURE: C7-T1 cervical epidural steroid injection under fluoroscopic guidance. After obtaining written consent, the patient was taken back to fluoroscopy suite, placed in prone position with separate pillows under chest and forehead to decrease cervical lordosis. Skin overlying cervical area then prepped and draped in aseptic fashion. C7-T1 cervical interspace identified by AP fluoroscopy. Skin and subcutaneous tissue overlying target site injection anesthetized with 3 mL of 1% lidocaine. A 20-gauge 3-1/2 inch Tuohy needle advanced under fluoroscopic guidance towards the epidural space using a midline approach. Epidural space identified using loss of resistance to air technique. After negative aspiration for heme or cerebrospinal fluid, 1 mL of Omnipaque injected. A cervical epidurogram confirmed using both AP and oblique fluoroscopy. After negative aspiration for heme or cerebrospinal fluid, 5 mL of a solution containing 2 mL 40 mg per mL, 80 mg total triamcinolone along with 3 mL of lidocaine 1% injected slowly. Needle retracted approximately half way, flushed with 1 mL of 1% lidocaine and then removed. Sterile bandage placed over injection site. No new motor deficits present in the upper extremities following procedure. The patient tolerated procedure well, carefully escorted to recovery room in stable condition. No apparent complications. After meeting discharge criteria, the patient discharged home. <ELECTRONICALLY SIGNED> By: Davin Julio DO 09/26/20 1614 1043 1222 Davin Julio DO /nt
== END | disposition home or self-care (01) ==
LOC: PAIN 06:51
PROVIDERS: ATTEND Anesthesiology Pain Medicine
DX: M47.22 Other spondylosis with radiculopathy, cervical region (principal); G89.29 Other chronic pain; I10 Essential (primary) hypertension; M19.90 Unspecified osteoarthritis, unspecified site; I48.91 Unspecified atrial fibrillation; Z98.890 Other specified postprocedural states; Z79.899 Other long term (current) drug therapy; Z88.8 Allergy status to other drugs, medicaments and biological substances; Z79.01 Long term (current) use of anticoagulants

== ENCOUNTER → 2020-12-12 | Outpatient (CLI) | payer OTHER, BC ==
[~2020-12-12] VITALS: Ht 172.7 cm; Wt 83.0 kg
[2020-12-12 11:02] VITALS: BP 129/84
--- NOTE | 2020-12-12 11:24 | NUR ---
Pain Clinic Assessment: 1. History of Osteoarthritis: NECK History of Rheumatoid Arthritis: Not Applicable 2. Height: 5 ft. 8 in. 172.7 cm. Weight: 183.0 lb. oz. 83.008 kg. Patient's BMI: 27.8 3. Vital Signs: BP: 129/84 Pulse: 79 Resp: 18 Temp: 02 Sat: 98 ECG Mon: 4. Pain Intensity: 9 5. Fall Risk: Dizziness: N Needs help standing or walking: N Fallen in the last 3 months: N Fall risk comments: HAD A FALL 3 DAYS AGO 6. Patient on Blood Thinner: RILEYQUIS 7. History of Hypertension: Y 8. Opioid Therapy greater than 6 weeks: N Opiate Contract Signed: 9. Risk Assessment Tool Provided: LOW RISK 0 10. Functional Assessment Tool: 54/70 11. Recreational Drug Use: Never Drug Type: Tobacco Use: Never Smoker Tobacco Type: Amount or Packs/day: How Many Years: Alcohol Use: No Frequency: Quant:
--- NOTE | 2020-12-13 12:07 | HPC ---
[facility] [address] [place] [address] PAIN MANAGEMENT CONSULTATION Name: DAPHNE RUDOLPH Room #: REG Thomas Lynch.#: [id number] Admission: 12/12/20 Attend Phys: Davin Julio DO Discharge: Date of : 42 Report #: [id number] THIS REPORT FOR: cc: Gage Lenz MD, Bernard O. MD Johnson, James E. DO ~ DATE OF SERVICE: 12/12/2020 REFERRING PHYSICIAN: Gage Lenz MD CHIEF COMPLAINT: Neck pain, right upper extremity pain with paresthesias, intermittent left upper extremity pain with paresthesias. HISTORY OF PRESENT ILLNESS: As you know, the patient is a very pleasant 80-year-old male, returning in followup visit to undergo next in the series of cervical epidural injections. The patient reports good efficacy with previous injections up to 80% improvement in overall pain, but unfortunately his symptoms have reoccurred. As you are aware, the patient suffers from fairly significant cervical symptoms leading to chronic cervical radiculopathy. He has been doing very well with the epidural injections and is hopeful to see similar improvement today. He is returning today with pain level of 9/10. States his pain is aching, sharp, numbness and tingling in sensation, exacerbated with turning his head and lifting his right arm. Otherwise, medications, epidural injections tend to improve symptoms. He returns for the next in the series of cervical epidural injections. ALLERGIES: TETRACYCLINE AND SIMVASTATIN. CURRENT MEDICATIONS: See chart. SOCIAL HISTORY: The patient denies any use of tobacco, alcohol or IV illicit drug use. He is retired, retiring years ago. He is the sole provider to his who unfortunately is suffering from dementia. He is unaccompanied at today's visit. IMAGING: No new imaging available. PQRS: The patient has known arthritic changes of the cervical spine, lumbar spine, bilateral knees, bilateral hips and shoulders. No rheumatoid arthritis. The patient is placing current pain score at 9/10. He is not a fall risk, has not had a fall in the last 3 months. He is treated for hypertension and is on a blood thinner in the form of Eliquis, which he has stopped 3 days prior to today's procedure. He is on opioids, but has a low opioid addiction potential. Pain impact today is rated at 45/70, moderate interference of daily activities secondary to pain. [address] [address] PAIN MANAGEMENT CONSULTATION Name: DAPHNE RUDOLPH Room #: REG CLI Florian#: [id number] Admission: 12/12/20 Attend Phys: Davin Julio DO Discharge: Date of : 42 Report #: [id number] PHYSICAL EXAMINATION: VITAL SIGNS: Blood pressure 129/84, pulse is 79, respiratory rate 18 and unlabored. The patient is 98% on room air. GENERAL: Well-developed, well-nourished, well-hydrated 80-year-old male appearing stated age. He is placing pain today at 9/10. HEENT: Normocephalic, atraumatic. Pupils equal, round and reactive. Extraocular muscles are intact. NEUROLOGIC: Speech fluent. The patient is deemed a good historian. He is wearing a mask in compliance with COVID-19 regulations. EXTREMITIES: Show no clubbing, no cyanosis, and no edema. MUSCULOSKELETAL: Upper extremity strength appears weakened on the right when compared to left. Pain is generated with movement of the right upper extremity when compared to left. Muscle bulk and tone remains symmetrical. Spurlings test positive right. ASSESSMENT: 1. Cervical radiculopathy. 2. Cervical spondylosis with radiculopathy. 3. Osteoarthritis of the cervical spine. 4. Chronic intractable pain. PLAN: 1. The patient returns today in followup visit to undergo next in the series of cervical epidural injections. He reports excellent benefit with each injection. He is hopeful that he will see similar improvement with today's procedure. He has been advised risks and benefits, states understood and wished to proceed. 2. No medication changes made at today's visit. The patient will continue current medical therapy as prior prescribed. 3. We plan to see the patient back in followup visit on an as needed basis for the next in the series of cervical epidural injections. PROCEDURE NOTE DESCRIPTION OF PROCEDURE: C7-T1 cervical epidural steroid injection under fluoroscopic guidance. After obtaining written consent, the patient was taken back to fluoroscopy suite, placed in prone position with separate pillows under chest and forehead to decrease cervical lordosis. Skin overlying the cervical area then prepped and draped in aseptic fashion. C7-T1 cervical interspace identified by AP fluoroscopy. Skin and subcutaneous tissue overlying target site of injection anesthetized with 3 mL of 1% lidocaine. A 20-gauge 3-1/2 inch Tuohy needle advanced under fluoroscopic guidance towards the epidural space using a midline approach. Epidural space identified using loss of resistance to air technique. After negative aspiration for heme or [facility] [address] [place] [address] PAIN MANAGEMENT CONSULTATION Name: DAPHNE RUDOLPH Room #: REG CLThomas Du#: [id number] Admission: 12/12/20 Attend Phys: Davin Julio DO Discharge: Date of : 42 Report #: [id number] cerebrospinal fluid, 1 mL of Omnipaque injected. Cervical epidurogram confirmed using both AP and oblique fluoroscopy. After negative aspiration for heme or cerebrospinal fluid, 5 mL of a solution containing 2 mL 40 mg per mL, 80 mg total triamcinolone along with 3 mL lidocaine 1% injected slowly. Needle retracted usp, flushed with 1 mL of 1% lidocaine and then removed. Sterile bandage placed over injection site. No new motor deficits present in the upper extremities following procedure. The patient tolerated procedure well, carefully escorted to recovery room in stable condition. No apparent complications. After meeting discharge criteria, the patient discharged home. <ELECTRONICALLY SIGNED> By: Davin Julio DO 12/13/20 1207 1228 1237 Davin Julio DO /nt
== END | disposition home or self-care (01) ==
LOC: PAIN 06:54
PROVIDERS: ATTEND Anesthesiology Pain Medicine
DX: M47.22 Other spondylosis with radiculopathy, cervical region (principal); G89.29 Other chronic pain; I10 Essential (primary) hypertension; M19.90 Unspecified osteoarthritis, unspecified site; Z98.890 Other specified postprocedural states; Z79.899 Other long term (current) drug therapy; Z79.01 Long term (current) use of anticoagulants

== ENCOUNTER → 2021-03-20 | Outpatient (CLI) | payer OTHER, BC ==
[~2021-03-20] VITALS: Ht 170.2 cm; Wt 84.1 kg
[2021-03-20 09:30] VITALS: BP 145/91
--- NOTE | 2021-03-20 09:40 | NUR ---
Pain Clinic Assessment: 1. History of Osteoarthritis: NECK History of Rheumatoid Arthritis: Not Applicable 2. Height: 5 ft. 7 in. 170.2 cm. Weight: 185.4 lb. oz. 84.097 kg. Patient's BMI: 29.0 3. Vital Signs: BP: 145/91 Pulse: 80 Resp: 16 Temp: 02 Sat: 100 ECG Mon: 4. Pain Intensity: 8-9 5. Fall Risk: Dizziness: N Needs help standing or walking: N Fallen in the last 3 months: N Fall risk comments: HAD A FALL 3 DAYS AGO 6. Patient on Blood Thinner: ELIQUIS 7. History of Hypertension: Y 8. Opioid Therapy greater than 6 weeks: N Opiate Contract Signed: 9. Risk Assessment Tool Provided: LOW RISK 0 10. Functional Assessment Tool: 54/ 11. Recreational Drug Use: Never Drug Type: Tobacco Use: Never Smoker Tobacco Type: Amount or Packs/day: How Many Years: Alcohol Use: No Frequency: Quant:
--- NOTE | 2021-03-20 12:24 | HPC ---
[facility] [place] [address] PAIN MANAGEMENT CONSULTATION Name: DAPHNE RUDOLPH Room #: REG Thomas Travis.#: [id number] Admission: 03/20/21 Attend Phys: Davin Julio DO Discharge: Date of : 42 Report #: [id number] THIS REPORT FOR: cc: Gage Lenz MD, Bernard O. MD Johnson, James E. DO ~ DATE OF SERVICE: 03/20/2021 REFERRING PHYSICIAN: Gage Lenz MD CHIEF COMPLAINT: Neck pain, right upper extremity pain with paresthesias, intermittent left upper extremity pain. HISTORY OF PRESENT ILLNESS: As you know, the patient is a very pleasant 81-year-old male returning in followup visit to undergo next in the series of cervical epidural injections to address chronic cervical radicular symptoms involving bilateral lower extremities, right greater than left. The patient denies any new injury or trauma that may have led to symptom reoccurrence. He states that his pain slowly and progressively returns. He is now placing pain score at 8-9/10. He returns today in followup visit having discontinued his Eliquis in preparation for a cervical epidural injection under fluoroscopic guidance. He reports previous cervical epidural injection providing improvement in symptoms of greater than 80% for 2-1/2 months. He returns today for next in the series of cervical epidural injections. ALLERGIES: TETRACYCLINE AND SIMVASTATIN. CURRENT MEDICATIONS: See chart. SOCIAL HISTORY: The patient denies tobacco, alcohol, IV or illicit drug use. He is retired, retired years ago. He is a sole provider to his who is suffering from progressively worsening dementia. He is unaccompanied today. IMAGING: No new imaging available. PQRS: The patient has known arthritic changes of the cervical spine, lumbar spine, bilateral knees, bilateral hips and shoulders. No rheumatoid arthritis. He is placing current pain score at 8-9/10. He is not typically a fall risk, but did have a fall 3 days ago, tripping over an object in his garage. He has subsequently picked up his garage and has not had a fall since that time. He is on blood thinners in the form of Eliquis. He is treated for hypertension. He is on chronic opioids, has a low opioid addiction potential. Pain impact is 54/70, severe interference of daily activities secondary to pain. PHYSICAL EXAMINATION: VITAL SIGNS: Blood pressure 145/91, pulse 80, respiratory rate 16 and [facility] [address] [place] [address] PAIN MANAGEMENT CONSULTATION Name: DAPHNE RUDOLPH Room #: REG CLI M.R.#: [id number] Admission: 03/20/21 Attend Phys: Davin Julio DO Discharge: Date of : 42 Report #: [id number] unlabored. The patient is 100% on room air. Height 5 feet 7 inches tall, weight 185.4 pounds, BMI calculated 29.0. GENERAL: Well-developed, well-nourished, well-hydrated 81-year-old male appearing his stated age, placing current pain score at around 8-9/10. HEENT: Normocephalic, atraumatic. Pupils are round, and responsive. EXTREMITIES: Show no clubbing, no cyanosis. No appreciable edema. MUSCULOSKELETAL: Muscle bulk and tone equal and symmetrical in upper extremities 5/5, intact to light touch from C5 through T1 dermatomes. Spurling's test positive on the right. ASSESSMENT: 1. Cervical radiculopathy. 2. Cervical spondylosis with radiculopathy. 3. Osteoarthritis of cervical spine. 4. Chronic intractable pain. PLAN: 1. The patient returns today in followup visit to undergo cervical epidural injection under fluoroscopic guidance. He has had a recurrence of pain, now rating pain at 8-9/10. He has had an 80% improvement in overall symptoms lasting for 2-1/2 months with the previous cervical epidural injections, hopeful to see similar improvement today. He has been advised the risks and benefits of the procedure, states understood and wished to proceed. 2. The patient will restart his Eliquis this evening and continue his typical Eliquis dose until our followup visit. 3. We will see the patient back in followup visit on an as needed basis for next in the series of cervical epidural injections. PROCEDURE NOTE DESCRIPTION OF PROCEDURE: C7-T1 cervical epidural steroid injection under fluoroscopic guidance. After obtaining written consent, the patient was taken back to fluoroscopy suite, placed in a prone position with separate pillows under chest and forehead to decrease cervical lordosis. Skin overlying the cervical area prepped and draped in aseptic fashion. C7-T1 cervical interspace identified by AP fluoroscopy. Skin and subcutaneous tissue overlying target site injection anesthetized with 3 mL of 1% lidocaine. A 20-gauge 3-1/2 inch Tuohy needle advanced under fluoroscopic guidance towards the epidural space using a midline approach. Epidural space identified using loss of resistance to air technique. After negative aspiration for heme or cerebrospinal fluid, 1 mL of Omnipaque injected. Cervical epidurogram confirmed using both AP and oblique fluoroscopy. After negative aspiration for heme or cerebrospinal fluid, 5 mL of a solution containing 2 mL 40 mg per mL, [address] [address] PAIN MANAGEMENT CONSULTATION Name: DAPHNE RUDOLPH Room #: REG CLThomas Lynch#: [id number] Admission: 03/20/21 Attend Phys: Davin Julio DO Discharge: Date of : 42 Report #: [id number] total triamcinolone along with 3 mL of lidocaine 1% injected slowly. Needle retracted skilled nursing, flushed with 1 mL of 1% lidocaine and removed. Sterile bandage placed over injection site. There were no new motor deficits present in the upper extremities following procedure. The patient tolerated procedure well, carefully escorted to recovery room in stable condition. No apparent complication. After meeting discharge criteria, the patient discharged home. <ELECTRONICALLY SIGNED> By: Davin Julio DO 03/20/21 1224 [id number] 1219 Davin Julio DO /nt
== END | disposition home or self-care (01) ==
LOC: PAIN 09:03
PROVIDERS: ATTEND Anesthesiology Pain Medicine
DX: M47.22 Other spondylosis with radiculopathy, cervical region (principal); G89.29 Other chronic pain; I10 Essential (primary) hypertension; M19.90 Unspecified osteoarthritis, unspecified site; Z98.890 Other specified postprocedural states; Z79.899 Other long term (current) drug therapy; Z79.01 Long term (current) use of anticoagulants; Z88.8 Allergy status to other drugs, medicaments and biological substances

== ENCOUNTER → 2021-06-19 | Outpatient (CLI) | payer OTHER, BC ==
[~2021-06-19] VITALS: Ht 170.2 cm; Wt 82.7 kg
--- NOTE | ~2021-06-19 | HPC ---
[facility] [place] [address] PAIN MANAGEMENT CONSULTATION Name: DAPHNE RUDOLPH Room #: REG Thomas Lynch.#: [id number] Admission: 06/19/21 Attend Phys: Davin Julio DO Discharge: Date of : 42 Report #: [id number] THIS REPORT FOR: cc: FAM - No family physician/PCP FAM - No family physician/PCP Davin Julio DO ~ cc: Gage Lenz MD DATE OF SERVICE: 06/19/2021 REFERRING PHYSICIAN: Dr. Gage Lenz CHIEF COMPLAINT: Neck pain, right upper extremity pain with paresthesias, intermittent left upper extremity pain with paresthesias. HISTORY OF PRESENT ILLNESS: As you know, the patient is a very pleasant 81-year-old male returning in followup visit to undergo next in the series of cervical epidural injections under fluoroscopic guidance. The patient reports excellent benefit with each cervical epidural injection, the most recent giving 75-80% improvement in overall pain, lasting for nearly 2 months. Unfortunately, his symptoms have reoccurred. No inciting injury or trauma. He returns today reporting pain up to a level of 9/10. He requests next in the series of cervical epidural injections. He has been off his Eliquis for the past 3 days in preparation for the procedure. ALLERGIES: TETRACYCLINE AND SIMVASTATIN. CURRENT MEDICATIONS: See chart. SOCIAL HISTORY: Remain the same. He denies tobacco, alcohol or IV or illicit drug use. He is retired, retired years ago. He is a sole provider to his who is suffering from dementia. He is unaccompanied today. IMAGING: No new imaging available. PQRS: The patient has known arthritic changes of cervical spine, lumbar spine, bilateral knees, bilateral hips, bilateral shoulders and bilateral hands. No rheumatoid arthritis. He is placing current pain score 9/10. He is not a fall risk, but had had a fall about 3 days ago, apparently tripping over some objects in his garage. He is on Eliquis, but has discontinued the medication 3 days prior to today's procedure. He is treated for hypertension. He is on chronic opioids, has a low opiate addiction potential. Pain impact is 54/70. Severe interference of daily activities secondary to pain. PHYSICAL EXAMINATION: VITAL SIGNS: Blood pressure 138/80, pulse 99, respiratory rate 16 and unlabored. The patient 98% on room air. Height 5 feet 7 inches tall, weight [facility] [address] [place] [address] PAIN MANAGEMENT CONSULTATION Name: DAPHNE RUDOLPH Room #: REG CLI [facility]#: [id number] Admission: 06/19/21 Attend Phys: Davin Julio DO Discharge: Date of : 42 Report #: [id number] 118.4 pounds, BMI calculated 28.6. GENERAL: Well-developed, well-nourished, well-hydrated 81-year-old male appearing stated age. Pain is rated today 9/10. HEENT: Normocephalic, atraumatic. Pupils equal, round and responsive. He is wearing a mask in compliance with COVID-19 regulations. EXTREMITIES: Show no clubbing, no cyanosis. No appreciable edema. MUSCULOSKELETAL: Lower extremity strength is symmetrical 5/5 upper extremity strength is equal and symmetrical 5/5. Muscle bulk and tone is equal and symmetrical in both the upper extremities or lower extremities. He is intact to light touch from C5 through T1 dermatomes. Spurling's test remains positive on the right, equivocal left. Cervical provocation is met with increasing neck pain, no radiation of symptoms. ASSESSMENT: 1. Cervical radiculopathy. 2. Cervical spondylosis with radiculopathy. 3. Facet arthropathy of cervical spine. 4. Chronic intractable pain. PLAN: 1. The patient returns today in followup visit requesting to undergo cervical epidural injection under fluoroscopic guidance. He notes excellent benefit with these procedures, most recent gave 75-80% improvement in overall pain, lasting for almost 2 months. He returns today requesting next in the series. The patient has been advised risks and benefits of the procedure, states understood and wished to proceed. 2. No medication changes made at today's visit. The patient will continue current medical therapy as prior prescribed. 3. We plan to see the patient back in followup visit on an as needed basis for the next in the series of cervical epidural injections. The patient will restart his Eliquis today and continue the medication until our next visit. PROCEDURE NOTE: DESCRIPTION OF PROCEDURE: C7-T1 cervical epidural steroid injection under fluoroscopic guidance. After obtaining written consent, the patient was taken back to fluoroscopy suite, placed in prone position with separate pillows under chest and forehead to decrease sarcoidosis. Skin overlying cervical area then prepped and draped in aseptic fashion. C7-T1 cervical interspace was identified by AP fluoroscopy. Skin and subcutaneous tissue overlying target site injection anesthetized with 3 mL 1% lidocaine. A 20 gauge 3-1/2 inch Tuohy needle advanced under fluoroscopic guidance towards the epidural space using a midline approach. Epidural space identified using loss of resistance to air technique. After negative aspiration for heme or [facility] [address] [place] [address] PAIN MANAGEMENT CONSULTATION Name: DAPHNE RUDOLPH Room #: REG CLI Cris#: [id number] Admission: 06/19/21 Attend Phys: Davin Julio DO Discharge: Date of : 42 Report #: [id number] cerebrospinal fluid, 1 mL of Omnipaque injected. A cervical epidurogram confirmed using both AP and lateral fluoroscopy. After negative aspiration for heme or cerebrospinal fluid, 5 mL solution containing 2 mL 40 mg per mL 80 mg total triamcinolone along with 3 mL of lidocaine, 1% injected slowly. Needle retracted snf flushed with 1 mL of 1% lidocaine and then removed. Sterile bandage placed over injection site. No motor deficits present in he upper extremity following procedure. The patient tolerated the procedure well, carefully escorted to recovery room in stable condition. No apparent complications. After meeting discharge criteria, the patient discharged home. By: [id number] Davin Julio DO /nt
[2021-06-19 12:59] VITALS: BP 138/80
--- NOTE | 2021-06-19 13:05 | NUR ---
Pain Clinic Assessment: 1. History of Osteoarthritis: NECK History of Rheumatoid Arthritis: Not Applicable 2. Height: 5 ft. 7 in. 170.2 cm. Weight: 182.4 lb. oz. 82.736 kg. Patient's BMI: 28.6 3. Vital Signs: BP: 138/80 Pulse: 99 Resp: 16 Temp: 02 Sat: 98 ECG Mon: 4. Pain Intensity: 9 5. Fall Risk: Dizziness: N Needs help standing or walking: N Fallen in the last 3 months: N Fall risk comments: HAD A FALL 3 DAYS AGO 6. Patient on Blood Thinner: ZITA 7. History of Hypertension: Y 8. Opioid Therapy greater than 6 weeks: N Opiate Contract Signed: 9. Risk Assessment Tool Provided: LOW RISK 0 10. Functional Assessment Tool: 54/70 11. Recreational Drug Use: Never Drug Type: Tobacco Use: Never Smoker Tobacco Type: Amount or Packs/day: How Many Years: Alcohol Use: No Frequency: Quant:
== END | disposition home or self-care (01) ==
LOC: PAIN 09:31
PROVIDERS: ATTEND Anesthesiology Pain Medicine
DX: M47.22 Other spondylosis with radiculopathy, cervical region (principal); G89.29 Other chronic pain; I10 Essential (primary) hypertension; M19.90 Unspecified osteoarthritis, unspecified site; Z98.890 Other specified postprocedural states; Z79.899 Other long term (current) drug therapy; Z88.8 Allergy status to other drugs, medicaments and biological substances

== ENCOUNTER → 2021-10-09 | Outpatient (CLI) | payer OTHER, BC ==
[~2021-10-09] VITALS: Ht 170.2 cm; Wt 79.7 kg
[~2021-10-09] MED LIST changes: +CLOPIDOGREL75 MG PO
[2021-10-09 10:44] VITALS: BP 125/84
--- NOTE | 2021-10-09 11:08 | NUR ---
Pain Clinic Assessment: 1. History of Osteoarthritis: NECK History of Rheumatoid Arthritis: Not Applicable 2. Height: 5 ft. 7 in. 170.2 cm. Weight: 175.6 lb. oz. 79.652 kg. Patient's BMI: 27.5 3. Vital Signs: BP: 125/84 Pulse: 77 Resp: 16 Temp: 02 Sat: 98 ECG Mon: 4. Pain Intensity: 9 5. Fall Risk: Dizziness: N Needs help standing or walking: N Fallen in the last 3 months: N Fall risk comments: HAD A FALL 3 DAYS AGO 6. Patient on Blood Thinner: ZITA 7. History of Hypertension: Y 8. Opioid Therapy greater than 6 weeks: N Opiate Contract Signed: 9. Risk Assessment Tool Provided: LOW RISK 0 10. Functional Assessment Tool: 54/70 11. Recreational Drug Use: Never Drug Type: Tobacco Use: Never Smoker Tobacco Type: Amount or Packs/day: How Many Years: Alcohol Use: No Frequency: Quant:
--- NOTE | 2021-10-09 15:06 | HPC ---
[facility] [address] [place] [address] PAIN MANAGEMENT CONSULTATION Name: DAPHNE RUDOLPH Room #: REG Thomas Florian#: [id number] Admission: 10/09/21 Attend Phys: Davin Julio DO Discharge: Date of : 42 Report #: [id number] THIS REPORT FOR: cc: Martir Ribeiro,Martir Owens,Davin Díaz DO ~ cc: Gage Lenz MD DATE OF SERVICE: 10/09/2021 REFERRING PHYSICIAN: Dr. Gage Lenz. CHIEF COMPLAINT: Neck pain, right upper extremity pain with paresthesias, chronic low back pain, lower extremity pain with paresthesias. HISTORY OF PRESENT ILLNESS: As you know, the patient is a very pleasant 81-year-old male returning in followup visit with recurrence of cervical radiculopathy involving the neck and right upper extremity, almost exclusively. He is also complaining of low back pain, bilateral lower extremity pain that has been diagnosed as Lumbar radiculopathy. Today, the patient is most concerned about his neck pain, right upper extremity symptoms as he is unable to sleep at night and participate in daily activities due to pain. He is placing his current pain score 9/10. He returns today in followup visit having discontinued his anticoagulant in preparation for a lumbar epidural injection under fluoroscopic guidance. The patient denies injury or trauma that may have led to symptom development. He has had no changes in his medication management, which would preclude him from undergoing a cervical epidural injection requested. ALLERGIES: TETRACYCLINE AND SIMVASTATIN. CURRENT MEDICATIONS: See chart. SOCIAL HISTORY: The patient denies tobacco, alcohol or IV or illicit drug use. He is retired, retired years ago. He is a sole provider to his who is suffering from progressively worsening dementia. He is unaccompanied at today's visit. REVIEW OF SYSTEMS: Positive for neck pain, right upper extremity pain with paresthesias, chronic low back pain and lower extremity pain with paresthesias. All other review of systems are negative. PQRS: The patient has known arthritic changes of the cervical spine, lumbar spine, bilateral knees, bilateral hips, bilateral shoulders and bilateral hands. No rheumatoid arthritis. He is placing pain intensity today at 9/10. He is not a fall risk, has not had a fall in last 3 months. He is on Eliquis, but discontinued medication prior to today's procedure, so he could undergo the procedure safely. He is treated for hypertension. He is on chronic opioids, [address] [address] PAIN MANAGEMENT CONSULTATION [facility]UD[facility]PH [id number] Admission: 10/09/21 Attend Phys: Davin Julio DO Discharge: Date of : 42 Report #: [id number] but takes them sparingly. He has a low opioid addiction potential based on assessment tool. Pain impact remains high at a level of 60/70, severe near complete interference of daily activities secondary to pain. PHYSICAL EXAMINATION: VITAL SIGNS: Blood pressure 125/84, pulse 77, respiratory rate 16 and unlabored. The patient 98% on room air. Height 5 feet 7 inches tall, weight 175.6 pounds, BMI calculated 27.5. GENERAL: Well-developed, well-nourished, well-hydrated 81-year-old male appearing stated age. He is placing current pain score 9/10. HEENT: Normocephalic, atraumatic. Pupils equal, round and responsive. He is wearing a mask in compliance with COVID-19 regulations. EXTREMITIES: Show no clubbing, no cyanosis. No appreciable edema. MUSCULOSKELETAL: Upper extremity strength remains symmetrical 5/5, intact to light touch from C5 through T1 dermatomes. Spurling's test positive on the right, negative left. Cervical provocation testing including extension, rotation, lateral flexion to the right intensify neck pain and radicular symptoms. ASSESSMENT: 1. Cervical radiculopathy. 2. Cervical spondylosis with radiculopathy. 3. Facet arthropathy of the cervical spine. 4. Chronic intractable pain. PLAN: 1. The patient returns today in followup visit to undergo cervical epidural injection under fluoroscopic guidance. He has noted excellent benefit with previous cervical epidural injections, the most recent according to the patient, gave 80% improvement in overall pain until just recently where his symptoms reoccurred without inciting injury or trauma. He returns today requesting a cervical epidural injection under fluoroscopic guidance. The patient has been advised of the risks and the benefits of this procedure, states he understood and wished to proceed. 2. The patient is complaining of increasing back pain, bilateral lower extremity pain for which he carries a diagnosis of lumbar radiculopathy. He has undergone lumbar epidural injections in the past with good benefit. He is considering looking to treat that area if his symptoms do not improve. I would recommend at least a 3-week timeframe before we address that issue. He is agreeable with the plan. He will make an appointment back with us in 3 weeks if he wishes to undergo a lumbar epidural injection under fluoroscopic guidance. 3. We are hopeful the patient will see good benefit with cervical epidural injection. We will see him back in followup visit to address this issue as necessary. Again, we will see the patient again in 3 weeks if he wishes to undergo lumbar epidural injection to address his recurrent lumbar radicular pain. [facility] [address] [place] [address] PAIN MANAGEMENT CONSULTATION Name: DAPHNE RUDOLPH Room #: REG CLI ..#: [id number] Admission: 10/09/21 Attend Phys: Davin Julio DO Discharge: Date of : 42 Report #: [id number] PROCEDURE NOTE: DESCRIPTION OF PROCEDURE: Cervical epidural steroid injection under fluoroscopic guidance. After obtaining written consent, the patient was taken back to fluoroscopy suite, placed in prone position with separate pillows under chest and forehead to decrease cervical lordosis. Skin overlying cervical area then prepped and draped in aseptic fashion. C7-T1 cervical interspace was identified by AP fluoroscopy. Skin and subcutaneous tissue overlying target site injection anesthetized with 3 mL 1% preservative-free lidocaine. A 20 gauge 3-1/2 inch Tuohy needle advanced under fluoroscopic guidance towards the epidural space using a midline approach. Epidural space identified using loss of resistance to air technique. After negative aspiration for heme or cerebrospinal fluid, 1 mL of Omnipaque injected. A cervical epidurogram was confirmed using both AP and oblique fluoroscopy. After negative aspiration for heme or cerebrospinal fluid, 5 mL solution containing 2 mL 40 mg per mL 80 mg total triamcinolone along with 3 mL of 1% injected slowly. Needle was then retracted approximately residential, flushed with 1 mL of 1% lidocaine and removed. Sterile bandage placed over injection site. No new motor deficits present in the upper extremities following procedure. The patient tolerated the procedure well, carefully escorted to recovery room in stable condition. No apparent complications. After meeting discharge criteria, the patient discharged home. <ELECTRONICALLY SIGNED> By: Davin Julio DO 10/09/21 1506 [id number] Davin Julio DO /nt
== END | disposition home or self-care (01) ==
LOC: PAIN 07:22
PROVIDERS: ATTEND Anesthesiology Pain Medicine
DX: M47.22 Other spondylosis with radiculopathy, cervical region (principal); G89.29 Other chronic pain; I10 Essential (primary) hypertension; M19.90 Unspecified osteoarthritis, unspecified site; Z98.890 Other specified postprocedural states; Z79.899 Other long term (current) drug therapy; Z79.891 Long term (current) use of opiate analgesic; Z88.8 Allergy status to other drugs, medicaments and biological substances

== ENCOUNTER → 2021-11-15 | Outpatient (CLI) | payer OTHER, BC | LOC: SJCVC 10:09 | PROVIDERS: ATTEND Internal Medicine | DX: R94.31 Abnormal electrocardiogram [ECG] [EKG] (principal); I25.2 Old myocardial infarction; I48.0 Paroxysmal atrial fibrillation; I25.10 Atherosclerotic heart disease of native coronary artery without angina pectoris; E78.5 Hyperlipidemia, unspecified; G47.30 Sleep apnea, unspecified; F32.9 Major depressive disorder, single episode, unspecified; Z95.818 Presence of other cardiac implants and grafts; Z88.8 Allergy status to other drugs, medicaments and biological substances; Z79.899 Other long term (current) drug therapy; Z87.891 Personal history of nicotine dependence ==

== ENCOUNTER → 2022-01-08 | Outpatient (CLI) | payer OTHER, BC ==
[~2022-01-08] VITALS: Ht 170.2 cm; Wt 81.0 kg
[~2022-01-08] MED LIST changes: +ASA81BEC PO; +LORAZEPAM 1 MG T1 MG PO; +OMEPRAZOLE 20 M20 M1 PO
[2022-01-08 09:14] VITALS: BP 131/80
--- NOTE | 2022-01-08 09:24 | NUR ---
Pain Clinic Assessment: 1. History of Osteoarthritis: NECK History of Rheumatoid Arthritis: Not Applicable 2. Height: 5 ft. 7 in. 170.2 cm. Weight: 178.6 lb. oz. 81.012 kg. Patient's BMI: 28.0 3. Vital Signs: BP: 131/80 Pulse: 70 Resp: 16 Temp: 02 Sat: 100 ECG Mon: 4. Pain Intensity: 8 5. Fall Risk: Dizziness: N Needs help standing or walking: N Fallen in the last 3 months: Y Fall risk comments: HAD A FALL 3 DAYS AGO 6. Patient on Blood Thinner: None 7. History of Hypertension: Y 8. Opioid Therapy greater than 6 weeks: N Opiate Contract Signed: 9. Risk Assessment Tool Provided: LOW RISK 0 10. Functional Assessment Tool: 54/70 11. Recreational Drug Use: Never Drug Type: Tobacco Use: Never Smoker Tobacco Type: Amount or Packs/day: How Many Years: Alcohol Use: No Frequency: Quant:
--- NOTE | 2022-01-09 10:10 | HPC ---
[facility] [place] [address] PAIN MANAGEMENT CONSULTATION Name: DAPHNE RUDOLPH Room #: REG BLU M.Gema.#: [id number] Admission: 01/08/22 Attend Phys: Davin Julio DO Discharge: Date of : 44 Report #: [id number] THIS REPORT FOR: cc: Martir Ribeiro,Davin Beebe DO ~ cc: Gage Lenz MD DATE OF SERVICE: 01/08/2022 REFERRING PHYSICIAN: Dr. Gage Lenz. CHIEF COMPLAINT: Neck pain, right upper extremity pain with paresthesias. HISTORY OF PRESENT ILLNESS: As you know, the patient is a very pleasant 81-year-old male who has returned today in followup visit requesting to undergo a cervical epidural injection under fluoroscopic guidance. He has had recurrence of cervical radicular symptoms for which he places pain score at 8/10. He denies injury or trauma that may have led to symptom development. He states that he did have a fall about 3 days ago, which exacerbated his symptoms. He returns today per the request of his primary care physician to undergo a cervical epidural injection under fluoroscopic guidance to address cervical radiculopathy. ALLERGIES: TETRACYCLINE AND SIMVASTATIN. CURRENT MEDICATIONS: See chart. SOCIAL HISTORY: The patient denies tobacco, alcohol or IV or illicit drug use. He is retired, retired years ago. He is the sole care provider of his . He is unaccompanied today. IMAGING: No new imaging available. PQRS: The patient has known arthritic changes of the cervical spine, lumbar spine, bilateral shoulders, bilateral knees, bilateral hips and bilateral hands. He suffers from no rheumatoid arthritis. He is placing pain intensity at 8/10. He is not typically a fall risk, but did have a fall 3 days ago, which exacerbated his neck and right upper extremity pain. He has rectified the problem by moving the objects he tripped over at his home. He is not on blood thinners, but is treated for hypertension. He is on no opioids, has a low opioid addiction potential. Pain impact is 54/70, severe interference of daily activities secondary to pain. PHYSICAL EXAMINATION: VITAL SIGNS: Blood pressure 131/80, pulse 70, respiratory rate 16 and unlabored. The patient 100% on room air. Height 5 feet 7 inches tall, weight [facility] [address] [place] [address] PAIN MANAGEMENT CONSULTATION Name: DAPHNE RUDOLPH Room #: REG CLThomas WrayXander#: [id number] Admission: 01/08/22 Attend Phys: Davin Julio DO Discharge: Date of : 44 Report #: [id number] 178.6 pounds, BMI calculated 28.0. GENERAL: Well-developed, well-nourished, well-hydrated 81-year-old male, appearing stated age. Pain is rated today 8/10. HEENT: Normocephalic, atraumatic. He is wearing a mask in compliance with COVID-19 regulations. EXTREMITIES: Show no clubbing, no cyanosis, no edema. MUSCULOSKELETAL: Upper extremity strength is symmetrical 5/5, intact to light touch from C5 through T1 dermatomes. Spurling's test positive on the right. Muscle bulk and tone is symmetrical in the upper extremities. ASSESSMENT: 1. Cervical radiculopathy. 2. Cervical spondylosis with radiculopathy. 3. Facet arthropathy of cervical spine. 4. Chronic intractable pain. PLAN: 1. The patient returns today in followup visit requesting to undergo cervical epidural injection under fluoroscopic guidance. He has noted excellent benefit with previous cervical epidural injections, hopeful to see similar improvement today. We discussed with the patient the risks and the benefits of this procedure. These risks include but are not necessarily limited to bleeding, bruising, infection, worsening pain, no relief of pain, also risk of temporary or permanent muscle weakness, temporary or permanent nerve damage, possible paralysis, post-dural puncture headache and . The patient states understood and wished to proceed. 2. No medication changes made at today's visit. The patient will continue current medical therapy as prior prescribed. 3. Plan to see the patient back in followup visit on an as-needed basis for the next in the series of cervical epidural injections. PROCEDURE NOTE DESCRIPTION OF PROCEDURE: C7-T1 cervical epidural steroid injection under fluoroscopic guidance. After obtaining written consent, the patient was taken back to fluoroscopy suite, placed in prone position, pillow under the chest and forehead to decrease cervical lordosis. Skin overlying cervical area then prepped and draped in aseptic fashion. C7-T1 cervical interspace identified by AP fluoroscopy. Skin and subcutaneous tissue overlying target site injection anesthetized with 3 mL 1% lidocaine. A 20 gauge 3-1/2 inch Tuohy needle advanced under fluoroscopic guidance towards the epidural space using a midline approach. Epidural space identified using loss of resistance to air technique. After negative aspiration for heme or [facility] [address] [facility] [address] PAIN MANAGEMENT CONSULTATION Name: DAPHNE RUDOLPH Room #: REG CL Florian#: [id number] Admission: 01/08/22 Attend Phys: Davin Julio DO Discharge: Date of : 44 Report #: [id number] cerebrospinal fluid, 1 mL of Omnipaque injected. A cervical epidurogram was confirmed using both AP and oblique fluoroscopy. After negative aspiration for heme or cerebrospinal fluid, 5 mL of solution containing 2 mL 40 mg per mL 80 mg total triamcinolone along with 3 mL of lidocaine, 1% injected slowly. Needle retracted long term flushed with 1 mL of 1% lidocaine and removed. Sterile bandage placed over injection site. No new motor deficits present in the upper extremities following procedure. The patient tolerated the procedure well, carefully escorted to recovery room in stable condition. No apparent complications. After meeting discharge criteria, the patient discharged home. <ELECTRONICALLY SIGNED> By: Davin Julio DO 01/09/22 [id number] Davin Julio DO /nt
== END | disposition home or self-care (01) ==
LOC: PAIN 06:50
PROVIDERS: ATTEND Anesthesiology Pain Medicine
DX: M47.22 Other spondylosis with radiculopathy, cervical region (principal); M47.26 Other spondylosis with radiculopathy, lumbar region; G89.29 Other chronic pain; I10 Essential (primary) hypertension; M19.90 Unspecified osteoarthritis, unspecified site; I48.92 Unspecified atrial flutter; Z98.890 Other specified postprocedural states; Z79.899 Other long term (current) drug therapy; Z88.8 Allergy status to other drugs, medicaments and biological substances